=== PATIENT | female | born 1960 | race Caucasian/White ===

== ENCOUNTER 2016-11-04 10:25 | Day surgery (SDC) | payer OTHER ==
[2016-11-02 11:25] VITALS: BMI 22.6
[~2016-11-04 10:25] MED LIST: LACTATED RINGERS 1,000 ML IV SCH; LIDOCAINE 1% 20 ML VIAL (10MG/ML) FOR IV START INTRADERMA PRN
[2016-11-04 10:47] VITALS: TEMP 98.1
[2016-11-04] MEDS ORDERED: LACTATED RINGERS 1,000 ML IV ONE (10:47)
[2016-11-04] MEDS ORDERED: ONDANSETRON 4 MG/2 ML VIAL IVP ONE (10:56)
[2016-11-04] MEDS ORDERED: LIDOCAINE 1% INJ 10MG/ML (20 ML MDV) ONE (11:37)
[2016-11-04] MEDS ORDERED: PROPOFOL 10 MG/ML 20 ML VIAL IV ONE (11:37)
--- NOTE | 2016-11-04 12:00 | P.PCN ---
Date of Procedure: 11/04/16 Preoperative Diagnosis: Postoperative Diagnosis: Procedure(s) Performed: Brief history: Patient is a pleasant 56-year-old white female, scheduled for an elective upper endoscopy as well as colonoscopy as a part of evaluation of abdominal pain, change in bowel habits for the last 2 years duration. Procedure performed: Esophagogastroduodenoscopy with biopsy Colonoscopy with biopsy Preoperative diagnosis: Abdominal pain Change in bowel habits Anesthesia: MAC Procedure: After informed consent was obtained from the patient was brought into the endoscopy unit and IV sedation was administered by anesthesia under continuous monitoring. Initially upper endoscopy was done. The Olympus GF 160 video endoscope was inserted inserted into the mouth and esophagus intubated without any difficulty and was gradually advanced into the stomach and duodenum and carefully examined. Biopsies were done from the duodenum to rule out celiac disease. The bulb and second part of the duodenum appeared normal. The scope was then withdrawn into the stomach adequately insufflated with air and upon careful examination the antrum had mild mottling of the mucosa and biopsies were done from this area. The body, cardia and fundus appeared normal. The scope was then withdrawn into the esophagus. small sliding-type hiatal hernia noted. The GE junction was located at 40 cm to the incisors. It appeared regular with no erythema erosions or ulcerations. Rest of the esophagus appeared normal. Patient tolerated the procedure well. At this time the patient continued to remain sedation. Initial digital rectal examination was normal. Olympus CF 160 video colonoscope was then inserted into the rectum and gradually advanced to the cecum without any difficulty. Careful examination was performed as the scope was gradually being withdrawn. The prep was excellent. 10 cm of the terminal ileum was visualized and appeared normal. The cecum, ascending colon, transverse colon, descending colon, sigmoid colon and rectum appeared normal. random biopsies were done from ascending and descending colon to rule out Jacob scope/collagenous colitis. Retroflexion was performed in the rectum and no lesions were noted. Patient tolerated the procedure well. Impression: 1. Upper endoscopy revealed mild antral gastritis and small sliding-type hiatal hernia. 2. Colonoscopy was essentially within normal limits with no evidence of colitis or colorectal neoplasia Recommendations: Findings of this examination were discussed with the patient as well as her family. She was advised to follow with the biopsy results. She can have a repeat screening colonoscopy in 10 years Implants: Indications for Procedure: Operative Findings: Description of Procedure:
[2016-11-04 12:22] VITALS: BP 115/67; PULSE 49; RESP 16
== END 2016-11-04 12:35 | disposition home or self-care (01) ==
LOC: ORWHC2ENDO 10:25
PROVIDERS: ATTEND Internal Medicine Gastroenterology
DX: R19.4 Change in bowel habit (principal); K21.0 Gastro-esophageal reflux disease with esophagitis; K29.50 Unspecified chronic gastritis without bleeding; K44.9 Diaphragmatic hernia without obstruction or gangrene; J45.909 Unspecified asthma, uncomplicated; M79.7 Fibromyalgia; Z79.82 Long term (current) use of aspirin; Z79.51 Long term (current) use of inhaled steroids; Z79.899 Other long term (current) drug therapy; Z88.1 Allergy status to other antibiotic agents; Z91.040 Latex allergy status
CPT/HCPCS: 88305; 88342; 45380; 43239; J2405; J2001; J2704

== ENCOUNTER 2017-08-01 04:04 | Observation (INO) | payer OTHER ==
--- NOTE | 2017-08-01 04:25 | ED ---
Chest Pain HPI - General Chief Complaint: Chest Pain Stated Complaint: Chest pain Time Seen by Provider: 08/01/17 04:06 Source: patient Mode of arrival: EMS Limitations: no limitations - History of Present Illness Initial Comments: This patient is a 57-year-old woman who presents to be evaluated for left-sided chest pain that radiates to her back. The patient states that it developed about 2 hours ago, and it did wake her from sleep. She states that the pain became severe and her partner recommended she be seen here. She describes pain as being constant, she states that it's sharp and burning sensation at the same time. She has not discovered anything that worsens or improves the pain. MD Complaint: chest pain Onset/Timin -: hour(s) Onset: during rest Pain Location: left chest Pain Radiation: back Severity: severe Quality: sharp, other (Burning) Consistency: constant Improves With: nothing Worsens With: nothing Treatments Prior to Arrival: none - Related Data Home Medications Medication Instructions Recorded Confirmed Ranitidine HCl [Zantac] 150 mg PO BID 02/21/14 08/01/17 Albuterol Sulfate [Ventolin Hfa] 1 - 2 puff INHALATION RT-QID PRN 11/02/1608/01 Hydroxychloroquine Sulfate 200 mg PO BID 11/02/16 08/01/17 [Plaquenil] Sulfamethox-Tmp 800-160Mg [Bactrim 1 tab PO BID 08/01/17 08/01/17 DS 800-160 mg] Allergies Allergy/AdvReac Type Severity Reaction Status Date / Time bee venom protein (honey bee) Allergy Severe Anaphylaxis Verified 08/01/17 07:29 adhesive tape AdvReac Unknown Tears skin Verified 08/01/17 07:29 latex AdvReac Itching, Verified 08/01/17 07:29 skin peels Tetracyclines AdvReac Rash/Hives Verified 08/01/17 07:29 Review of Systems ROS Statement: Those systems with pertinent positive or pertinent negative responses have been documented in the HPI. ROS Other: All systems not noted in ROS Statement are negative. Constitutional: Denies: fever, chills Respiratory: Denies: cough, dyspnea Cardiovascular: Reports: as per HPI, chest pain. Denies: palpitations, orthopnea, edema, syncope Gastrointestinal: Reports: abdominal pain (Chronic). Denies: nausea, vomiting, diarrhea, constipation Genitourinary: Denies: dysuria, hematuria Musculoskeletal: Denies: back pain Skin: Denies: rash Neurological: Denies: headache, weakness, numbness EKG Findings - EKG Results: EKG: interpreted by LUZ, sinus rhythm, normal axis, normal QRS, normal ST/T EKG shows: bradycardia (Rate approximately 53 bpm) - [place], Pacemaker, Normal: Myocardial infarction: anterior [place] (old age or indeterminate) (There may be a every wave in lead V2 consistent with possible old septal infarct) Past Medical History Past Medical History: Asthma, Fibromyalgia, GERD/Reflux, Myocardial Infarction ( [place]), Osteoarthritis (OA) Additional Past Medical History / Comment(s): LUPUS, HX OF DIVERTICULITIS, CONSTIPATION AND DIARRHEA. , RECEIVING ROOSTER COMB INJECTIONS IN KNEES, PT STATES JUST DOESNT FEEL WELL, STATES ABNORMAL LIVER TESTS. Last Myocardial Infarction Date:: unknown History of Any Multi-Drug Resistant Organisms: None Reported Past Surgical History: Back Surgery, Cholecystectomy, Hysterectomy, Joint Replacement, Orthopedic Surgery, Tonsillectomy Additional Past Surgical History / Comment(s): RIGHT TOTAL HIP , LOWER BACK FUSION, CERVICAL SURGERY WITH HARDWARE, WIRED RIGHT SHOULDER, NERVE RIGHT ELBOW. Past Anesthesia/Blood Transfusion Reactions: Postoperative Nausea & Vomiting ( PONV) Past Psychological History: No Psychological Hx Reported Smoking Status: Current every day smoker Past Alcohol Use History: None Reported Past Drug Use History: Marijuana - Past Family History Mother Family Medical History: Cancer Additional Family Medical History / Comment(s): BREAST CANCER WITH METS. Father Family Medical History: Coronary Artery Disease (CAD) Additional Family Medical History / Comment(s): FATHER AT THE AGE OF 75YRS from broken heart. He has history of CVA. Daughter(s) Additional Family Medical History / Comment(s): Patient has 2 adult children with no major medical problems. General Exam Limitations: no limitations General appearance: alert, in no apparent distress Head exam: Present: atraumatic, normocephalic Eye exam: Present: normal appearance. Absent: scleral icterus, conjunctival injection ENT exam: Present: normal oropharynx Respiratory exam: Present: normal lung sounds bilaterally. Absent: respiratory distress, wheezes, rales, rhonchi, stridor Cardiovascular Exam: Present: regular rate, normal rhythm, normal heart sounds. Absent: systolic murmur, diastolic murmur, rubs, gallop GI/Abdominal exam: Present: soft. Absent: distended, tenderness, guarding, rebound, mass, pulsatile mass, hernia Extremities exam: Present: normal inspection, normal capillary refill. Absent: pedal edema, calf tenderness Back exam: Present: normal inspection. Absent: CVA tenderness (R), CVA tenderness (L) Neurological exam: Present: alert Skin exam: Present: warm, dry, intact, normal color. Absent: rash Course Vital Signs 08/01/17 08/01/17 08/01/17 04:06 06:45 07:26 Temperature 98.4 F Pulse Rate 66 60 57 L Pulse Rate [ Right Pulse Oximetery] Pulse Rate [ Sitting Apical] Respiratory 20 16 17 Rate Blood Pressure 157/72 113/66 135/59 O2 Sat by Pulse 98 97 Oximetry 08/01/17 08/01/17 08/01/17 08:20 10:08 10:44 Temperature Pulse Rate 63 59 L 58 L Pulse Rate [ Right Pulse Oximetery] Pulse Rate [ Sitting Apical] Respiratory 18 17 18 Rate Blood Pressure 128/79 125/66 125/58 O2 Sat by Pulse 97 100 100 Oximetry 08/01/17 08/01/17 08/01/17 13:18 13:28 15:00 Temperature Pulse Rate 55 L 60 Pulse Rate [ Right Pulse Oximetery] Pulse Rate [ 70 Sitting Apical] Respiratory 19 18 17 Rate Blood Pressure 128/59 120/58 O2 Sat by Pulse 96 96 Oximetry 08/01/17 08/01/17 15:47 16:00 Temperature 98.6 F Pulse Rate 60 Pulse Rate [ 55 L Right Pulse Oximetery] Pulse Rate [ 70 Sitting Apical] Respiratory 1 L 18 Rate Blood Pressure 122/60 O2 Sat by Pulse 98 Oximetry Disposition Clinical Impression: Chest pain Disposition: ADMITTED IP TO THIS [facility] Condition: Fair
[2017-08-01] MEDS ORDERED: ASPIRIN 81 MG PO STA (04:35)
[2017-08-01] MEDS ORDERED: MORPHINE SULFATE 4 MG/ML SYRINGE IV STA (04:35)
[2017-08-01] MEDS ORDERED: diphenhydrAMINE 50 MG/ML 1 ML VIAL IVP STA (05:01)
--- NOTE | 2017-08-01 05:13 | XR ---
EXAM: XR Chest, 1 View CLINICAL HISTORY: ITS.REASON XR Reason: chest pain TECHNIQUE: Frontal view of the chest. COMPARISON: None. FINDINGS: Lungs: Unremarkable. The lungs are clear. Pleural space: Unremarkable. No pneumothorax. Heart: Unremarkable. No cardiomegaly. Mediastinum: Unremarkable. Bones/joints: Mild degenerative changes of the left shoulder joint. IMPRESSION: No acute findings.
[2017-08-01 05:39] LABS: Basophils # (A) 0.1 k/uL (0-0.2); Basophils % (A) 0 %; Eosinophils # (A) 0.3 k/uL (0-0.7); Eosinophils % (A) 2 %; Lymphocytes # (A) 3.1 k/uL (1.0-4.8); Lymphocytes % (A) 19 %; MCH 30.8 pg (25.0-35.0); MCHC 34.9 g/dL (31.0-37.0); MCV 88.2 fL (80.0-100.0); Monocytes % (A) 6 %; Neutrophils # (A) 11.4 k/uL (1.3-7.7); Neutrophils % (A) 71 %; Platelet Count 321 k/uL (150-450); RBC 4.53 m/uL (3.80-5.40); RDW 12.3 % (11.5-15.5); WBC 16.1 k/uL (3.8-10.6)
[2017-08-01 05:49] LABS: ALT 25 U/L (9-52); AST 15 U/L (14-36); Albumin 3.9 g/dL (3.5-5.0); Alkaline Phosphatase 105 U/L (38-126); Amylase 106 U/L (30-110); Anion Gap 10 mmol/L; Blood Urea Nitrogen 21 mg/dL (7-17); Calcium 9.9 mg/dL (8.4-10.2); Carbon Dioxide 25 mmol/L (22-30); Chloride 104 mmol/L (98-107); Glucose 86 mg/dL (74-99); Lipase 346 U/L (23-300); Potassium 4.1 mmol/L (3.5-5.1); Sodium 139 mmol/L (137-145); Total Bilirubin 0.2 mg/dL (0.2-1.3); Total Protein 6.8 g/dL (6.3-8.2)
[2017-08-01] MEDS ORDERED: RX INFO: IV CONTRAST WAS GIVEN 1 EACH MISC MISCELLANE PRN (06:42)
[2017-08-01] MEDS ORDERED: NITROGLYCERIN SL TABS 0.4 MG TAB SUBLINGUAL PRN (07:33)
--- NOTE | 2017-08-01 08:16 | CT ---
INDICATION: Chest pain, shortness of breath TECHNIQUE: CT acquisition is performed through the chest per institutional CT pulmonary angiogram protocol following the administration of 100 mL Omnipaque 350 IV contrast. Sagittal and coronal reformatted images and MIP images are provided. DOSE INFORMATION: DLP 459 mGy-cm. One or more of the following dose reduction techniques were used: automated exposure control, adjustment of the mA and/or kV according to patient size, use of iterative reconstruction technique. COMPARISON: CXR 08/01/17. FINDINGS: There is no evidence of acute pulmonary embolism. Main pulmonary artery is normal in caliber. There is no evidence of thoracic aortic aneurysm or dissection. The heart is normal in size and there is no pericardial effusion. There are calcifications in the left ventricle along the endocardial subjacent to the mitral valve. There is no adenopathy by size criteria. There is no airspace consolidation, pleural effusion, or pneumothorax. There is mild scarring in the right middle lobe. The visualized upper abdomen is unremarkable. There are no acute osseous findings. IMPRESSION: 1. No evidence of acute pulmonary embolism. 2. Calcifications along the endocardial margin of the left ventricle subjacent to the mitral valve, possibly calcifications of the papillary muscle, chordae tendineae, or trabeculated portion of the left ventricle. Correlate for any history of previous myocardial infarctions. Recommend comparison with priors, if available, to assess stability. Consider cardiology consultation and echocardiography as clinically indicated.
[2017-08-01] MEDS ORDERED: ONDANSETRON 4 MG/2 ML VIAL IVP STA (09:37)
[2017-08-01] MEDS ORDERED: ALBUTEROL NEBULIZED 2.5 MG/3 ML INHALATION PRN (10:11)
[2017-08-01 10:53] LABS: Creatine Kinase 40 U/L (30-135)
[2017-08-01 11:06] LABS: Creatine Kinase MB 0.4 ng/mL (0.0-2.4); Troponin I <0.012 ng/mL (0.000-0.034)
[2017-08-01] MEDS ORDERED: SODIUM CHLORIDE 0.9% 500 ML IV ONE (11:15)
[2017-08-01] MEDS ORDERED: SODIUM CHLORIDE 0.9% 1,000 ML IV SCH (11:30)
--- NOTE | 2017-08-01 15:03 | P.HPIM ---
History of Present Illness H&P Date: 08/01/17 Chief Complaint: Chest pain This is a 57-year-old female patient of Dr. Granado with past medical history of mild intermittent asthma, fibromyalgia, gastroesophageal reflux disease, osteoarthritis, lupus, history of diverticulitis. Patient developed left-sided chest pain under her breast that radiated to her back that woke her from sleep. Patient gives history that she had the flu about 3 weeks ago but that has resolved. She saw her doctor last week as she was not feeling well and had increased palpitations. She is scheduled for a stress test August 15. Patient states she has been weak and tired and has shortness of breath with activity. 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 She remembers about the time it happened but did not seek treatment. At that time, she states she was under a great deal of stress. Patient does have history of pancreatitis and had one occult beverage last night and noted to have elevated lipase. She states she rarely drinks alcohol. Her last bowel movement was yesterday and she had for explosive diarrhea stools. She was placed on Bactrim by her physician which she states was for a yeast infection in the female organs. She denies having any dysuria. She also had fever and chills 2 weeks ago but none now. Patient presented by ambulance to [facility] emergency center for evaluation. EKG was a normal sinus rhythm with no acute ST changes. White count was 16.1, electrolytes within normal limits, hemoglobin 14. Troponin was 0.012, liver enzymes within normal limits, amylase 106 and lipase 346. Chest x- ray showed no acute findings. CTA of the chest was negative for pulmonary embolism. Calcifications along the endocardial margin of the left ventricle adjacent to the mitral valve possible calcification of the papillary muscle, chordae tendineae or trabeculated portion of the left ventricle. Correlate for history of previous myocardial infarctions. Patient was given aspirin, morphine and Zofran and placed on the observation unit, serial cardiac enzymes and cardiology consult requested. Patient is seen in the emergency center she is waiting for a hospital room. Review of Systems All systems: negative Constitutional: Reports fatigue, Reports weakness, Denies anorexia, Denies chills, Denies fever, Denies lethargy, Denies malaise, Denies poor appetite, Denies weight loss Eyes: denies blurred vision, denies pain Ears, nose, mouth and throat: Denies headache, Denies hoarseness, Denies mouth pain, Denies sore throat, Denies vertigo Cardiovascular: Reports chest pain, Reports decreased exercise tolerance, Reports dyspnea on exertion, Reports palpitations, Reports rapid heart beat, Denies edema, Denies leg edema, Denies lightheadedness, Denies shortness of breath, Denies syncope Respiratory: Denies cough, Denies cough with sputum, Denies dyspnea, Denies excessive sputum, Denies hemoptysis, Denies home oxygen, Denies wheezing Gastrointestinal: Reports diarrhea, Denies abdominal pain, Denies nausea, Denies vomiting Genitourinary: Denies dysuria, Denies hematuria Musculoskeletal: Denies frequent falls, Denies gait dysfunction, Denies myalgias Integumentary: Denies pruritus, Denies rash, Denies wounds Neurological: Denies numbness, Denies weakness Psychiatric: Denies anxiety, Denies depression Endocrine: Denies fatigue, Denies weight change Past Medical History Past Medical History: Asthma, Fibromyalgia, GERD/Reflux, Myocardial Infarction ( [place]), Osteoarthritis (OA) Additional Past Medical History / Comment(s): LUPUS, HX OF DIVERTICULITIS, CONSTIPATION AND DIARRHEA. , RECEIVING ROOSTER COMB INJECTIONS IN KNEES, PT STATES JUST DOESNT FEEL WELL, STATES ABNORMAL LIVER TESTS. Last Myocardial Infarction Date:: unknown History of Any Multi-Drug Resistant Organisms: None Reported Past Surgical History: Back Surgery, Cholecystectomy, Hysterectomy, Joint Replacement, Orthopedic Surgery, Tonsillectomy Additional Past Surgical History / Comment(s): RIGHT TOTAL HIP , LOWER BACK FUSION, CERVICAL SURGERY WITH HARDWARE, WIRED RIGHT SHOULDER, NERVE RIGHT ELBOW. Past Anesthesia/Blood Transfusion Reactions: Postoperative Nausea & Vomiting ( PONV) Past Psychological History: No Psychological Hx Reported Smoking Status: Former smoker Past Alcohol Use History: None Reported Additional Past Alcohol Use History / Comment(s): Patient quit smoking in January 2017. Past Drug Use History: Marijuana - Past Family History Mother Family Medical History: Cancer Additional Family Medical History / Comment(s): Mother from thyroid cancer with metastatic disease. Father Family Medical History: Coronary Artery Disease (CAD) Additional Family Medical History / Comment(s): FATHER AT THE AGE OF 75YRS from broken heart. He has history of CVA. Daughter(s) Additional Family Medical History / Comment(s): Patient has 2 adult children with no major medical problems. Medications and Allergies Home Medications Medication Instructions Recorded Confirmed Type Ranitidine HCl [Zantac] 150 mg PO BID 02/21/14 08/01/17 History Albuterol Sulfate [Ventolin Hfa] 1 - 2 puff INHALATION RT-QID PRN 11/02/1608/01 History Hydroxychloroquine Sulfate 200 mg PO BID 11/02/16 08/01/17 History [Plaquenil] Sulfamethox-Tmp 800-160Mg [Bactrim 1 tab PO BID 08/01/17 08/01/17 History DS 800-160 mg] Allergies Allergy/AdvReac Type Severity Reaction Status Date / Time bee venom protein (honey bee) Allergy Severe Anaphylaxis Verified 08/01/17 07:29 adhesive tape AdvReac Unknown Tears skin Verified 08/01/17 07:29 latex AdvReac Itching, Verified 08/01/17 07:29 skin peels Tetracyclines AdvReac Rash/Hives Verified 08/01/17 07:29 Physical Exam Vitals: Vital Signs Temp Pulse Resp BP Pulse Ox 08/01/17 08:20 63 18 128/79 97 08/01/17 07:26 57 L 17 135/59 97 08/01/17 06:45 60 16 113/66 98 08/01/17 04:06 98.4 F 66 20 157/72 Intake and Output 07/31/17 08/01/17 08/01/17 22:59 06:59 14:59 Other: Weight 68.946 kg Gen: This is a 57-year-old female patient. Patient is sitting up in the ER stretcher and appears to be in no acute distress. She is able to speak in full sentences. HEENT: Head is atraumatic, normocephalic. Pupils equal, round. Sclerae is anicteric. NECK: Supple. No JVD. No lymphadenopathy. No thyromegaly. LUNGS: Clear to auscultation. No wheezes or rhonchi. No intercostal retractions. HEART: Regular rate and rhythm. No murmur. ABDOMEN: Soft. Bowel sounds are present. No masses. No tenderness. EXTREMITIES: No pedal edema. No calf tenderness. NEUROLOGICAL: Patient is awake, alert and oriented x3. Cranial nerves 2 through 12 are grossly intact. Results CBC & Chem 7: 08/01/17 04:08 08/01/17 04:08 Labs: Abnormal Lab Results - Last 24 Hours (Table) 08/01/17 08/01/17 08/01/17 Range/Units 04:08 04:08 04:08 WBC 16.1 H (3.8-10.6) k/uL Neutrophils # 11.4 H (1.3-7.7) k/uL D-Dimer 1.03 H (<0.60) mg/L FEU BUN 21 H (7-17) mg/dL Lipase 346 H (23-300) U/L Thrombosis Risk Factor Assmnt - DVT/VTE Prophylaxis DVT/VTE Prophylaxis: Mechanical Prophylaxis ordered Assessment and Plan Plan: 1. Chest pain with palpitations and shortness of breath with activity, generalized weakness and fatigue. Patient was scheduled for stress test on August 15. Patient will be placed in the observation unit repeat cardiac enzymes , cardiology consult, aspirin, nitroglycerin sublingual as needed. 2. Mild intermittent asthma, stable without exacerbation. Continue albuterol inhaler as needed. 3. Lupus. Continue hydroxychloroquine. 4. Fibromyalgia, stable. 5. Diarrhea of unclear etiology. Possible gastroenteritis. Monitor for any ongoing symptoms 6. Recent treatment with Bactrim for possible urinary tract infection. Source of infection is unclear as patient denies having dysuria at the time. 7. GI prophylaxis. Pepcid. 8. DVT prophylaxis. MARTINEZ coffman and SCDs. Patient placed on the observation unit. Discharge plan: Return home Impression and plan of care have been directed as dictated by the signing physician. Aura Del Valle nurse practitioner acting as scribe for signing physician.
[2017-08-01 17:36] LABS: Creatine Kinase 37 U/L (30-135)
[2017-08-01 17:46] LABS: Creatine Kinase MB 0.3 ng/mL (0.0-2.4); Troponin I <0.012 ng/mL (0.000-0.034)
[2017-08-01] MEDS: ACETAMINOPHEN TAB 325 MG TAB PO PRN (18:05)
[2017-08-01] MEDS: ONDANSETRON 4 MG/2 ML VIAL IVP PRN (18:05)
[2017-08-01] MEDS ORDERED: TEMAZEPAM 15 MG CAP PO SCH (21:00)
[2017-08-01] MEDS ORDERED: SULFAMETHOX-TMP 800-160MG 1 EACH TAB PO SCH (21:00)
[2017-08-01] MEDS: FAMOTIDINE 20 MG TAB PO SCH (22:15)
[2017-08-01] MEDS: HYDROXYCHLOROQUINE SULFATE 200 MG TAB PO SCH (22:15)
[2017-08-02 08:02] LABS: Basophils % (A) 0 %; Eosinophils # (A) 0.3 k/uL (0-0.7); Eosinophils % (A) 2 %; HCT 44.9 % (34.0-46.0); HGB 14.4 gm/dL (11.4-16.0); Lymphocytes # (A) 3.1 k/uL (1.0-4.8); Lymphocytes % (A) 23 %; MCH 29.3 pg (25.0-35.0); MCHC 32.2 g/dL (31.0-37.0); Mean Platelet Volume 7.1; Monocytes # (A) 0.9 k/uL (0-1.0); Monocytes % (A) 7 %; Neutrophils # (A) 9.2 k/uL (1.3-7.7); Neutrophils % (A) 67 %; Platelet Count 325 k/uL (150-450); RBC 4.93 m/uL (3.80-5.40); RDW 12.5 % (11.5-15.5); WBC 13.8 k/uL (3.8-10.6)
[2017-08-02 08:23] LABS: Albumin 4.2 g/dL (3.5-5.0); Calcium 9.6 mg/dL (8.4-10.2); Potassium 4.4 mmol/L (3.5-5.1); Total Bilirubin 0.4 mg/dL (0.2-1.3); Total Protein 7.3 g/dL (6.3-8.2)
[2017-08-02] MEDS: ONDANSETRON 4 MG/2 ML VIAL IVP PRN ×2 (08:27→18:52)
[2017-08-02] MEDS: ACETAMINOPHEN TAB 325 MG TAB PO PRN (08:28)
--- NOTE | 2017-08-02 10:15 | P.CRDCN ---
History of Present Illness Consult date: 08/02/17 Consult reason: chest pain History of present illness: Mrs. Benton is a pleasant 57-year-old female past medical history significant for asthma, fibromyalgia, gastroesophageal reflux disease, gastritis and lupus. She is also former smoker. She states she quit smoking tobacco January 2017 but continues to use medical marijuana daily. She denies personal history of coronary artery disease and has never seen a dairy bar manager for any reason. We've been asked to see her in consultation for complaint of chest pain. She states around 299 morning she woke up from sleep with an acute onset of sob and chest pain. The pain was in the midsternal/epigastric region and was stabbing/squeezing. It radiated through to her back and left shoulder. She got herself up into her chair and tried called for her but couldn't because the pain was so excrutiating. Ultimately she called EMS. The pain persisted until EMS arrived and gave her SL nitroglycerin which took the pain away. She also complains of over the last few weeks being extremely nauseous, frequent bouts of diarrhea and abdominal pain. She states she has had pancreatitis in the past and her gallbladder has been removed. She also has a history of IBS for which she has seen Dr. Guevara as an outpatient. She takes Zantac as needed. No further episodes of chest pain since admission but she does complain of ongoing nausea and mild tenderness to the left upper quadrant of the abdomen. EKG on arrival reveals sinus mechanism with poor R-wave progression. There is no old for comparison. Per the patient she states she is aware that she had a silent heart attack around 2010. Chest x-ray is negative for an acute cardiopulmonary process. CT angios negative for pulmonary embolism but does show some cardiac calcifications. Laboratory data reviewed, WBC on admission 16.1, repeat this morning 13.8, hemoglobin 14.9, platelets 325, d-dimer 1.03, potassium 4.4, magnesium 2.0, creatinine 0.93, cardiac enzymes negative 3, LDL 124, HDL 73, lipase on admission 340 6 repeat this morning 584. She takes no cardiac medications. Denies history of hypertension, dyslipidemia or diabetes mellitus. Significant family history for premature cardiac disease. Review of Systems At this time my exam: CONSTITUTIONAL: Denies fever. Denies chills. EYES: Denies blurred vision. Denies vision changes. Denies eye pain. EARS, NOSE, MOUTH & THROAT: Denies headache. Denies sore throat. Denies ear pain. CARDIOVASCULAR: Denies chest pain. Denies shortness of breath. Denies orthopnea. Denies PND. Denies palpitations. RESPIRATORY: Denies cough. GASTROINTESTINAL: Complains of abdominal pain with diarrhea and persistent nausea. Denies constipation. Denies vomiting. MUSCULOSKELETAL: Denies myalgias. INTEGUMENTARY: Denies pruitis. Denies rash. NEUROLOGIC: Denies numbness. Denies tingling. Denies weakness. PSYCHIATRIC: Denies anxiety. Denies depression. ENDOCRINE: Denies fatigue. Denies weight change. Denies polydipsia. Denies polyurina. GENITOURINARY: Denies burning, hematuria or urgency with micturation. HEMATOLOGIC: Denies history of anemia. Denies bleeding. Past Medical History Past Medical History: Asthma, Fibromyalgia, GERD/Reflux, Myocardial Infarction ( [place]), Osteoarthritis (OA) Additional Past Medical History / Comment(s): LUPUS, HX OF DIVERTICULITIS, CONSTIPATION AND DIARRHEA. , RECEIVING ROOSTER COMB INJECTIONS IN KNEES, PT STATES JUST DOESNT FEEL WELL, STATES ABNORMAL LIVER TESTS. Last Myocardial Infarction Date:: unknown History of Any Multi-Drug Resistant Organisms: None Reported Past Surgical History: Back Surgery, Cholecystectomy, Hysterectomy, Joint Replacement, Orthopedic Surgery, Tonsillectomy Additional Past Surgical History / Comment(s): RIGHT TOTAL HIP , LOWER BACK FUSION, CERVICAL SURGERY WITH HARDWARE, WIRED RIGHT SHOULDER, NERVE RIGHT ELBOW. Past Anesthesia/Blood Transfusion Reactions: Postoperative Nausea & Vomiting ( PONV) Past Psychological History: No Psychological Hx Reported Smoking Status: Former smoker Past Alcohol Use History: None Reported Additional Past Alcohol Use History / Comment(s): Patient quit smoking in January 2017. Past Drug Use History: Marijuana - Past Family History Mother Family Medical History: Cancer Additional Family Medical History / Comment(s): Mother from thyroid cancer with metastatic disease. Father Family Medical History: Coronary Artery Disease (CAD) Additional Family Medical History / Comment(s): FATHER AT THE AGE OF 75YRS from broken heart. He has history of CVA. Daughter(s) Additional Family Medical History / Comment(s): Patient has 2 adult children with no major medical problems. Medications and Allergies Home Medications Medication Instructions Recorded Confirmed Type Ranitidine HCl [Zantac] 150 mg PO BID 02/21/14 08/01/17 History Albuterol Sulfate [Ventolin Hfa] 1 - 2 puff INHALATION RT-QID PRN 11/02/1608/01 History Hydroxychloroquine Sulfate 200 mg PO BID 11/02/16 08/01/17 History [Plaquenil] Sulfamethox-Tmp 800-160Mg [Bactrim 1 tab PO BID 08/01/17 08/01/17 History DS 800-160 mg] Allergies Allergy/AdvReac Type Severity Reaction Status Date / Time bee venom protein (honey bee) Allergy Severe Anaphylaxis Verified 08/01/17 07:29 adhesive tape AdvReac Unknown Tears skin Verified 08/01/17 07:29 latex AdvReac Itching, Verified 08/01/17 07:29 skin peels Tetracyclines AdvReac Rash/Hives Verified 08/01/17 07:29 Physical Exam Vitals: Vital Signs Temp Pulse Pulse Pulse Resp BP BP 08/02/17 08:00 98.2 F 68 18 123/71 08/02/17 04:00 97.9 F 58 L 16 114/57 08/02/17 00:00 16 08/01/17 23:55 98.1 F 62 16 103/55 08/01/17 20:00 16 08/01/17 19:07 98.3 F 72 16 118/63 08/01/17 16:13 97.2 F L 55 L 18 115/59 08/01/17 16:00 55 L 70 18 08/01/17 15:47 98.6 F 60 1 L 122/60 08/01/17 15:00 60 17 120/58 08/01/17 13:28 55 L 18 128/59 08/01/17 13:18 70 19 08/01/17 10:44 58 L 18 125/58 08/01/17 10:08 59 L 17 125/66 Pulse Ox 08/02/17 08:00 98 08/02/17 04:00 95 08/02/17 00:00 08/01/17 23:55 94 L 08/01/17 20:00 08/01/17 19:07 98 08/01/17 16:13 94 L 08/01/17 16:00 08/01/17 15:47 98 03/06/18 15:00 96 08/01/17 13:28 96 08/01/17 13:18 08/01/17 10:44 100 08/01/17 10:08 100 Intake and Output 08/01/17 08/02/17 08/02/17 22:59 06:59 14:59 Intake Total 240 Balance 240 Intake: Oral 240 Other: Voiding Method Toilet Toilet # Voids 1 Weight 64 kg Blood pressure 123/71 heart rate 68 afebrile maintaining oxygen saturations on room air GENERAL: This is a 57-year-old female in no apparent distress at the time of my examination. HEENT: Head is atraumatic, normocephalic. Pupils are equal, round. Sclerae anicteric. Conjunctivae are clear. Mucous membranes of the mouth are moist. Neck is supple. There is no jugular venous distention. No carotid bruit is heard. LUNGS: Clear to auscultation no wheezes, rales or rhonchi. No chest wall tenderness is noted on palpation or with deep breathing. Coarse lung sounds throughout. HEART: Regular rate and rhythm without murmurs, rubs or gallops. S1 and S2 heard. ABDOMEN: Soft, left upper quadrant mildly tender. Bowel sounds are heard. No organomegaly noted. EXTREMITIES: No evidence of peripheral edema and no calf tenderness noted. VASCULAR: Radial and dorsalis pedis pulses palpated, no evidence of clubbing. NEUROLOGIC: Patient is awake, alert and oriented x3. Results 08/02/17 06:52 08/02/17 06:52 Cardiac Enzymes 08/01/17 08/01/17 08/02/17 Range/Units 10:03 16:50 06:52 AST 16 (14-36) U/L CK-MB (CK-2) 0.4 0.3 (0.0-2.4) ng/mL Troponin I <0.012 <0.012 (0.000-0.034) ng/mL Lipids 08/02/17 Range/Units 06:52 Triglycerides 88 (<150) mg/dL Cholesterol 215 H (<200) mg/dL HDL Cholesterol 73 H (40-60) mg/dL CBC 08/02/17 Range/Units 06:52 WBC 13.8 H (3.8-10.6) k/uL RBC 4.93 (3.80-5.40) m/uL Hgb 14.4 (11.4-16.0) gm/dL Hct 44.9 (34.0-46.0) % Plt Count 325 (150-450) k/uL Comprehensive Metabolic Panel 08/02/17 Range/Units 06:52 Sodium 141 (137-145) mmol/L Potassium 4.4 (3.5-5.1) mmol/L Chloride 102 (98-107) mmol/L Carbon Dioxide 27 (22-30) mmol/L BUN 18 H (7-17) mg/dL Creatinine 0.93 (0.52-1.04) mg/dL Glucose 83 (74-99) mg/dL Calcium 9.6 (8.4-10.2) mg/dL AST 16 (14-36) U/L ALT 30 (9-52) U/L Alkaline Phosphatase 100 (38-126) U/L Total Protein 7.3 (6.3-8.2) g/dL Albumin 4.2 (3.5-5.0) g/dL Current Medications Generic Name Dose Route Start Last Admin Trade Name Freq PRN Reason Stop Dose Admin Acetaminophen 650 mg 08/01/17 17:47 08/02/17 08:28 Tylenol Tab PO 650 mg Q6HR PRN Administration Fever and/ or Pain Albuterol Sulfate 2.5 mg 08/01/17 10:11 Ventolin Nebulized INHALATION RT-QID PRN Shortness Of Breath Aspirin 325 mg 08/02/17 09:00 Aspirin PO DAILY BRITTANEY Famotidine 20 mg 08/01/17 21:00 08/01/17 22:15 Pepcid PO 20 mg BID BRITTANEY Administration Hydroxychloroquine Sulfate 200 mg 08/01/17 21:00 08/01/17 22:15 Plaquenil PO 200 mg BID BRITTANEY Administration Sodium Chloride 1,000 mls @ 100 mls/hr 08/01/17 11:30 08/01/17 13:10 Saline 0.9% IV 100 mls/hr .Q10H BRITTANEY Administration Miscellaneous Information 1 each 08/01/17 06:42 08/01/17 07:14 Rx Info: Iv Contrast Was Given MISCELLANE 08/03/17 06:42 1 each DAILY PRN Administration Per Protocol Nitroglycerin 0.4 mg 08/01/17 07:33 Nitrostat SUBLINGUAL Q5M PRN Chest Pain Ondansetron HCl 4 mg 08/01/17 17:47 08/02/17 08:27 Zofran IVP 4 mg Q6HR PRN Administration Nausea And Vomiting Intake and Output 08/01/17 08/02/17 08/02/17 22:59 06:59 14:59 Intake Total 240 Balance 240 Intake: Oral 240 Other: Voiding Method Toilet Toilet # Voids 1 Weight 64 kg 08/02/17 06:52 08/02/17 06:52 Assessment and Plan Assessment: ASSESSMENT 1. Chest pain, atypical. No EKG evidence of acute ischemia, cardiac enzymes negative. An acute coronary event has been ruled out. 2. Acute pancreatitis, lipase 584 3. Leukocytosis 4. Dyslipidemia 5. Urinary tract infection, currently on bactrim per pcp 6. Chronic tobacco and marijuana abuse 7. Diarrhea PLAN Obtain 2D echocardiogram and doppler study to assess cardiac structure and function. Continue with medical management of abdominal concerns, possible GI consultation. She has a stress test scheduled for next week and we discussed that she will keep that appointment. No further in-patient cardiac workup. Plan discussed with the patient and she is agreeable. Thank you kindly for this consultation. Nurse Practitioner note has been reviewed, I agree with a documented findings and plan of care. Patient was seen and examined.
[2017-08-02] MEDS: HYDROXYCHLOROQUINE SULFATE 200 MG TAB PO SCH ×2 (12:01→20:14)
[2017-08-02] MEDS: ASPIRIN 325 MG TAB PO SCH (12:01)
[2017-08-02] MEDS: FAMOTIDINE 20 MG TAB PO SCH (12:02)
[2017-08-02] MEDS ORDERED: SODIUM CHLORIDE 0.9% 1,000 ML IV ONE (13:02)
[2017-08-02] MEDS: MORPHINE SULFATE 4 MG/ML SYRINGE IVP PRN ×3 (13:58→21:51)
--- NOTE | 2017-08-02 17:02 | ECHOF ---
Referral Reason:chest pain MEASUREMENTS -------- HEIGHT: 165.1 cm WEIGHT: 64.0 kg BP: 123/71 RVIDd: 2.4 cm (< 3.3) IVSd: 1.0 cm (0.6 - 1.1) LVIDd: 4.1 cm (3.9 - 5.3) LVPWd: 1.1 cm (0.6 - 1.1) IVSs: 1.1 cm LVIDs: 3.4 cm LVPWs: 1.1 cm LAESV Index (A-L): 25.42 ml/m Ao Diam: 2.7 cm (2.0 - 3.7) AV Cusp: 1.4 cm (1.5 - 2.6) LA Diam: 3.3 cm (2.7 - 3.8) MV EXCURSION: 15.293 mm (> 18.000) MV EF SLOPE: 106 mm/s (70 - 150) EPSS: 0.4 cm MV E Billy: 0.47 m/s MV DecT: 349 ms MV A Billy: 0.56 m/s MV E/A Ratio: 0.84 RAP: 5.00 mmHg RVSP: 12.14 mmHg FINDINGS -------- Sinus rhythm. This was a technically good study. LV size, wall thickness and systolic function are normal, with an EF greater than 55%. The left rubén tricular size is normal. The right ventricle is normal in size. Normal LA size by volume 22+/-6 ml/m2. The right atrial size is normal. The aortic valve is trileaflet, and appears structurally normal. No aortic stenosis or regurgitation. Mild mitral annular calcification present. Mild mitral regurgitation is present. Mild prolapse of the posterior mitral valve leaflet. Mild tricuspid regurgitation present. There is no evidence of pulmonary hypertension. The right v entricular systolic pressure, as measured by Doppler, is 12.14mmHg. There is no pulmonic regurgitation present. The aortic root size is normal. There is no pericardial effusion. CONCLUSIONS -------- 1. LV size, wall thickness and systolic function are normal, with an EF greater than 55%. 2. The left ventricular size is normal. 3. Normal LA size by volume 22+/-6 ml/m2. 4. The aortic valve is trileaflet, and appears structurally normal. No aortic stenosis or regurgitati on. 5. Mild mitral annular calcification present. 6. Mild mitral regurgitation is present. 7. Mild prolapse of the posterior mitral valve leaflet. 8. Mild tricuspid regurgitation present. 9. There is no evidence of pulmonary hypertension. 10. The right ventricular systolic pressure, as measured by Doppler, is 12.14mmHg. 11. There is no pulmonic regurgitation present. 12. The aortic root size is normal. 13. There is no pericardial effusion. WELDING OPERATOR: Tamara Boyce RDCS
--- NOTE | 2017-08-02 17:21 | P.PN ---
Subjective Progress Note Date: 08/02/17 This is a 57-year-old female patient of Dr. Granado with past medical history of mild intermittent asthma, fibromyalgia, gastroesophageal reflux disease, osteoarthritis, lupus, history of diverticulitis. Patient developed left-sided chest pain under her breast that radiated to her back that woke her from sleep. Patient gives history that she had the flu about 3 weeks ago but that has resolved. She saw her doctor last week as she was not feeling well and had increased palpitations. She is scheduled for a stress test August 15. Patient states she has been weak and tired and has shortness of breath with activity. 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 She remembers about the time it happened but did not seek treatment. At that time, she states she was under a great deal of stress. Patient does have history of pancreatitis and had one occult beverage last night and noted to have elevated lipase. She states she rarely drinks alcohol. Her last bowel movement was yesterday and she had for explosive diarrhea stools. She was placed on Bactrim by her physician which she states was for a yeast infection in the female organs. She denies having any dysuria. She also had fever and chills 2 weeks ago but none now. Patient presented by ambulance to [facility] emergency center for evaluation. EKG was a normal sinus rhythm with no acute ST changes. White count was 16.1, electrolytes within normal limits, hemoglobin 14. Troponin was 0.012, liver enzymes within normal limits, amylase 106 and lipase 346. Chest x- ray showed no acute findings. CTA of the chest was negative for pulmonary embolism. Calcifications along the endocardial margin of the left ventricle adjacent to the mitral valve possible calcification of the papillary muscle, chordae tendineae or trabeculated portion of the left ventricle. Correlate for history of previous myocardial infarctions. Patient was given aspirin, morphine and Zofran and placed on the observation unit, serial cardiac enzymes and cardiology consult requested. Patient is seen in the emergency center she is waiting for a hospital room. 08/02 patient evaluated by cardiology. Plan to get a stress test as outpatient. Lipase elevated to 584 from 346. Patient DD to small amount of meal along with a bolus and. Complain of significant nausea associated with epigastric tenderness. Triglycerides 215. Gastroenterology consult placed. Patient given 1 L of IV fluids. To continue at 1 25 mL per hour. Patient to keep nothing by mouth. Morphine 4 mg daily Objective - Vital Signs Vital signs: Vital Signs Temp 97.6 F 08/02/17 16:00 Pulse 55 L 08/02/17 16:00 Resp 18 08/02/17 16:00 BP 140/65 08/02/17 16:00 Pulse Ox 97 08/02/17 16:00 Intake & Output 08/01/17 08/02/17 08/02/17 18:59 06:59 18:59 Intake Total 240 240 Balance 240 240 Weight 64 kg Intake: Oral 240 240 Other: Voiding Method Toilet Toilet Toilet # Voids 1 3 - Exam Gen: This is a 57-year-old female patient. Patient is sitting up in the ER stretcher and appears to be in no acute distress. She is able to speak in full sentences. HEENT: Head is atraumatic, normocephalic. Pupils equal, round. Sclerae is anicteric. NECK: Supple. No JVD. No lymphadenopathy. No thyromegaly. LUNGS: Clear to auscultation. No wheezes or rhonchi. No intercostal retractions. HEART: Regular rate and rhythm. No murmur. ABDOMEN: Soft. Bowel sounds are present. No masses. Epigastric tenderness EXTREMITIES: No pedal edema. No calf tenderness. NEUROLOGICAL: Patient is awake, alert and oriented x3. Cranial nerves 2 through 12 are grossly intact. - Labs CBC & Chem 7: 08/02/17 06:52 08/02/17 06:52 Labs: Abnormal Lab Results - Last 24 Hours (Table) 08/02/17 08/02/17 Range/Units 06:52 06:52 WBC 13.8 H (3.8-10.6) k/uL Neutrophils # 9.2 H (1.3-7.7) k/uL BUN 18 H (7-17) mg/dL Cholesterol 215 H (<200) mg/dL LDL Cholesterol, Calc 124 H (0-99) mg/dL HDL Cholesterol 73 H (40-60) mg/dL Lipase 584 H (23-300) U/L Assessment and Plan Plan: 1. Atypical Chest pain unlikley to be ACS Patient was scheduled for stress test on August 15. 2. Mild intermittent asthma, stable without exacerbation. Continue albuterol inhaler as needed. 3. Lupus. Continue hydroxychloroquine. 4. Fibromyalgia, stable. 5. Diarrhea of unclear etiology. Possible gastroenteritis. Monitor for any ongoing symptoms 6. Recent treatment with Bactrim for possible urinary tract infection. Source of infection is unclear as patient denies having dysuria at the time. 7. GI prophylaxis. Pepcid. 8. DVT prophylaxis. MARTINEZ eugenee and SCDs. 9. Acute epigastric pain likely secondary to acute pancreatitis continue fluids (if the. Nothing by mouth. Pain control with morphine 4 mg every 6 hours. Gastroenterology consult Patient came to be switched to inpatient Discharge plan: Intermittent improvement in symptoms
[2017-08-02] MEDS: SODIUM CHLORIDE 0.9% 1,000 ML IV SCH (17:42)
[2017-08-02] MEDS: diphenhydrAMINE 50 MG/ML 1 ML VIAL IVP PRN (20:14)
[2017-08-02] MEDS: FAMOTIDINE 20 MG/2 ML VIAL IV SCH (20:25)
[2017-08-03] MEDS: diphenhydrAMINE 50 MG/ML 1 ML VIAL IVP PRN (01:23)
[2017-08-03] MEDS: MORPHINE SULFATE 4 MG/ML SYRINGE IVP PRN ×3 (02:21→10:17)
[2017-08-03] MEDS: ONDANSETRON 4 MG/2 ML VIAL IVP PRN (02:21)
[2017-08-03] MEDS: ACETAMINOPHEN TAB 325 MG TAB PO PRN (06:00)
[2017-08-03 07:32] LABS: Basophils % (A) 0 %; Eosinophils # (A) 0.2 k/uL (0-0.7); Eosinophils % (A) 1 %; HCT 41.4 % (34.0-46.0); Lymphocytes # (A) 2.5 k/uL (1.0-4.8); Lymphocytes % (A) 17 %; MCH 31.2 pg (25.0-35.0); MCHC 33.8 g/dL (31.0-37.0); MCV 92.2 fL (80.0-100.0); Mean Platelet Volume 6.9; Monocytes % (A) 7 %; Neutrophils # (A) 10.4 k/uL (1.3-7.7); Neutrophils % (A) 73 %; Platelet Count 275 k/uL (150-450); RBC 4.49 m/uL (3.80-5.40); RDW 12.6 % (11.5-15.5); WBC 14.3 k/uL (3.8-10.6)
[2017-08-03 07:54] LABS: ALT 31 U/L (9-52); AST 17 U/L (14-36); Albumin 3.7 g/dL (3.5-5.0); Alkaline Phosphatase 86 U/L (38-126); Anion Gap 10 mmol/L; Blood Urea Nitrogen 16 mg/dL (7-17); Calcium 9.3 mg/dL (8.4-10.2); Carbon Dioxide 23 mmol/L (22-30); Chloride 108 mmol/L (98-107); Glucose 77 mg/dL (74-99); Lipase 193 U/L (23-300); Potassium 4.7 mmol/L (3.5-5.1); Sodium 141 mmol/L (137-145); Total Bilirubin 0.5 mg/dL (0.2-1.3); Total Protein 6.6 g/dL (6.3-8.2)
[2017-08-03 09:00] VITALS: RESP 16
[2017-08-03] MEDS: ASPIRIN 325 MG TAB PO SCH (10:13)
[2017-08-03] MEDS: HYDROXYCHLOROQUINE SULFATE 200 MG TAB PO SCH (10:13)
[2017-08-03] MEDS: SODIUM CHLORIDE 0.9% 1,000 ML IV SCH ×2 (10:13→10:20)
[2017-08-03] MEDS: FAMOTIDINE 20 MG/2 ML VIAL IV SCH (10:13)
--- NOTE | 2017-08-03 11:10 | P.PN ---
Subjective Progress Note Date: 08/03/17 Principal diagnosis: Abdominal pain, elevated lipase evaluation for pancreatitis 57-year-old female with a history of IBS, cholecystectomy for biliary dyskinesia , pancreatitis, fibromyalgia, lupus, diverticulosis. Patient presented with acute chest pain 3 days ago that radiated to her right neck and upper back Consultation requested for elevation of lipase. Admission lipase 346 increased to 584 presently 193. Amylase 106. LFTs within normal limits. Patient states she has a history of pancreatitis about a year ago in the state [facility] of unclear etiology. She has no history of alcoholism. Takes occasional Zantac as needed for heartburn. No changes in the color of her urine or stool however she did having increased diarrhea for the last few days but improved over last 24 hours. Afebrile. White count 16.1 presently 14.3. Hemoglobin 14. BUN 16. Creatinine 0.8. Troponin 3 less than 0.012. Triglycerides 88. CTA chest no evidence of pulmonary embolism. Visualized upper abdomen is unremarkable Objective - Vital Signs Vital signs: Vital Signs Temp 98.4 F 08/03/17 08:00 Pulse 58 L 08/03/17 08:00 Resp 16 08/03/17 08:00 BP 111/58 08/03/17 08:00 Pulse Ox 98 08/03/17 08:00 Intake & Output 08/02/17 08/03/17 08/03/17 18:59 06:59 18:59 Intake Total 240 240 Balance 240 240 Weight 64 kg Intake: Oral 240 240 Other: Voiding Method Toilet Toilet Toilet # Voids 3 1 - Exam General appearance: The patient is alert, oriented, in no acute distress. HET: Head is normocephalic and atraumatic. Pupils are equal and reactive. Oropharynx is clear without lesions. Neck: Supple without lymphadenopathy. Trachea midline. Heart: S1 S2. Regular rate and rhythm. Lungs: No crackles or wheezes are heard. Abdomen: Soft, nontender, nondistended with bowel sounds. No peritoneal signs. No palpable organomegaly or masses. Extremities: Normal skin color and turgor. No cyanosis, rash, ulceration, clubbing, or edema. Radial and pedal pulses are 2/4 bilaterally. Neurological: No focal deficits. Strength and sensation are grossly intact. - Labs CBC & Chem 7: 08/03/17 07:06 08/03/17 07:06 Labs: Abnormal Lab Results - Last 24 Hours (Table) 08/03/17 08/03/17 Range/Units 07:06 07:06 WBC 14.3 H (3.8-10.6) k/uL Neutrophils # 10.4 H (1.3-7.7) k/uL Chloride 108 H (98-107) mmol/L
[2017-08-03 12:00] VITALS: BP 116/53; PULSE 55; TEMP 98.5
--- NOTE | 2017-08-03 12:22 | P.DS ---
Providers Date of admission: 08/01/17 07:33 Attending physician: Mikel Reyna MD Consults: 08/01/17 10:11 Consult Physician Routine Consulting Provider: Christiano Ford Consult Reason/Comments: CP Do you want consulting provider notified?: Yes 08/02/17 13:34 Consult Physician Routine Consulting Provider: Britney Guevara Consult Reason/Comments: abdominal pain, elevated lipase Do you want consulting provider notified?: Yes Primary care physician: [facility] Course: his is a 57-year-old female patient of Dr. Granado with past medical history of mild intermittent asthma, fibromyalgia, gastroesophageal reflux disease, osteoarthritis, lupus, history of diverticulitis. Patient developed left-sided chest pain under her breast that radiated to her back that woke her from sleep. Patient gives history that she had the flu about 3 weeks ago but that has resolved. She saw her doctor last week as she was not feeling well and had increased palpitations. She is scheduled for a stress test August 15. Patient states she has been weak and tired and has shortness of breath with activity. 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 She remembers about the time it happened but did not seek treatment. At that time, she states she was under a great deal of stress. Patient does have history of pancreatitis and had one occult beverage last night and noted to have elevated lipase. She states she rarely drinks alcohol. Her last bowel movement was yesterday and she had for explosive diarrhea stools. She was placed on Bactrim by her physician which she states was for a yeast infection in the female organs. She denies having any dysuria. She also had fever and chills 2 weeks ago but none now. Patient presented by ambulance to [facility] emergency center for evaluation. EKG was a normal sinus rhythm with no acute ST changes. White count was 16.1, electrolytes within normal limits, hemoglobin 14. Troponin was 0.012, liver enzymes within normal limits, amylase 106 and lipase 346. Chest x- ray showed no acute findings. CTA of the chest was negative for pulmonary embolism. Calcifications along the endocardial margin of the left ventricle adjacent to the mitral valve possible calcification of the papillary muscle, chordae tendineae or trabeculated portion of the left ventricle. Correlate for history of previous myocardial infarctions. Patient was given aspirin, morphine and Zofran and placed on the observation unit, serial cardiac enzymes and cardiology consult requested. Patient is seen in the emergency center she is waiting for a hospital room. 08/02 patient evaluated by cardiology. Plan to get a stress test as outpatient. Lipase elevated to 584 from 346. Patient DD to small amount of meal along with a bolus and. Complain of significant nausea associated with epigastric tenderness. Triglycerides 215. Gastroenterology consult placed. Patient given 1 L of IV fluids. To continue at 1 25 mL per hour. Patient to keep nothing by mouth. Morphine 4 mg daily 08/03 patient was evaluated today, lipase is trending down and is now 193. Echocardiogram was completed, ejection fraction greater than 55%, mild mitral regurgitation. Cardiology consult appreciated, patient has a stress test scheduled for next week as outpatient. Patient will be discharged on Bentyl Discharge diagnoses 1. Atypical Chest pain 2. Mild intermittent asthma 3. Lupus 4. Fibromyalgia 5. Diarrhea 6. Acute epigastric pain likely secondary to acute pancreatitis The above impression and plan of care have been discussed and directed by signing physician. Justina Gomez nurse practitioner acting as scribe for signing physician. Patient Condition at Discharge: Good Plan - Discharge Summary Discharge Rx Participant: No New Discharge Prescriptions: New Dicyclomine [Bentyl] 10 mg PO QID #120 capsule Continue Ranitidine HCl [Zantac] 150 mg PO BID Albuterol Sulfate [Ventolin HFA] 1 - 2 puff INHALATION RT-QID PRN PRN Reason: Shortness Of Breath Hydroxychloroquine Sulfate [Plaquenil] 200 mg PO BID Discontinued Sulfamethox-Tmp 800-160Mg [Bactrim DS 800-160 mg] 1 tab PO BID Discharge Medication List Ranitidine HCl [Zantac] 150 mg PO BID 02/21/14 [History] Albuterol Sulfate [Ventolin HFA] 1 - 2 puff INHALATION RT-QID PRN 11/02/16 [ History] Hydroxychloroquine Sulfate [Plaquenil] 200 mg PO BID 11/02/16 [History] Dicyclomine [Bentyl] 10 mg PO QID #120 capsule 08/03/17 [Rx] Follow up Appointment(s)/Referral(s): Britney Guevara MD [STAFF PHYSICIAN] - 08/21/17 4:30 pm Billy Granado DO [Primary Care Provider] - 1 Week Patient Instructions/Handouts: Acute Abdominal Pain (DC)
--- NOTE | 2017-08-03 12:52 | P.CONS ---
History of Present Illness - Reason for Consult Consult date: 08/03/17 Elevated lipase pancreatitis evaluation Requesting physician: Mikel Reyna - History of Present Illness 57-year-old female with a history of IBS-D, cholecystectomy for biliary dyskinesia, pancreatitis, fibromyalgia, lupus, diverticulosis. Patient presented with acute chest upper abdominal pain 3 days ago that radiated to her right neck and upper back Consultation requested for elevation of lipase. Admission lipase 346 increased to 584 presently 193. Amylase 106. LFTs within normal limits. Patient states she has a history of pancreatitis about a year ago in the [facility] of unclear etiology. She has no history of alcoholism. Takes occasional Zantac as needed for heartburn. No changes in the color of her urine or stool however she did having increased diarrhea for the last few days but improved over last 24 hours. Afebrile. White count 16.1 presently 14.3. Hemoglobin 14. BUN 16. Creatinine 0.8. Troponin 3 less than 0.012. Triglycerides 88. CTA chest no evidence of pulmonary embolism. Visualized upper abdomen is unremarkable. EGD colonoscopy October [address] Guevara for evaluation of abdominal pain and change in bowel habits no evidence of peptic ulcer disease mild antral gastritis small hiatal hernia colonoscopy within normal limits. Review of Systems Constitutional: Denies fever, chills, sweats, weight gain, or loss. HEENT: Negative for migraines, blurred vision or loss, earaches, drainage, tinnitus, oral mucosal lesions, dysphagia, or odynophagia. CARDIAC: History of LA. Negative for chest pain, arrhythmias, or palpitation. RESPIRATORY: History of asthma. Negative for shortness of breath, hemoptysis, cough, or sputum production. GI: See HPI for pertinent findings. : Negative for hematuria, urgency, frequency, polyuria, or dysuria. GYNc: Denies possibility of . Negative vaginal discharge. MUSCULOSKELETAL: History of fibromyalgia. Negative for muscle aches, swelling, arthritis, and arthralgias. NEUROLOGIC: Negative for stroke or TIA. ENDOCRINE: History of lupus. Negative for thyroid problems. SKIN: Negative for rash or itching. PSYCHIATRIC: Negative history for depression and anxiety Past Medical History Past Medical History: Asthma, Fibromyalgia, GERD/Reflux, Myocardial Infarction ( LA), Osteoarthritis (OA) Additional Past Medical History / Comment(s): LUPUS, HX OF DIVERTICULITIS, CONSTIPATION AND DIARRHEA. , RECEIVING ROOSTER COMB INJECTIONS IN KNEES, PT STATES JUST DOESNT FEEL WELL, STATES ABNORMAL LIVER TESTS. Last Myocardial Infarction Date:: unknown History of Any Multi-Drug Resistant Organisms: None Reported Past Surgical History: Back Surgery, Cholecystectomy, Hysterectomy, Joint Replacement, Orthopedic Surgery, Tonsillectomy Additional Past Surgical History / Comment(s): RIGHT TOTAL HIP , LOWER BACK FUSION, CERVICAL SURGERY WITH HARDWARE, WIRED RIGHT SHOULDER, NERVE RIGHT ELBOW. Past Anesthesia/Blood Transfusion Reactions: Postoperative Nausea & Vomiting ( PONV) Past Psychological History: No Psychological Hx Reported Smoking Status: Current every day smoker Past Alcohol Use History: None Reported Past Drug Use History: Marijuana - Past Family History Mother Family Medical History: Cancer Additional Family Medical History / Comment(s): BREAST CANCER WITH METS. Father Family Medical History: Coronary Artery Disease (CAD) Additional Family Medical History / Comment(s): FATHER AT THE AGE OF 75YRS from broken heart. He has history of CVA. Daughter(s) Additional Family Medical History / Comment(s): Patient has 2 adult children with no major medical problems. Medications and Allergies Home Medications Medication Instructions Recorded Confirmed Type Ranitidine HCl [Zantac] 150 mg PO BID 02/21/14 08/01/17 History Albuterol Sulfate [Ventolin HFA] 1 - 2 puff INHALATION RT-QID PRN 11/02/1608/01 History Hydroxychloroquine Sulfate 200 mg PO BID 11/02/16 08/01/17 History [Plaquenil] Dicyclomine [Bentyl] 10 mg PO QID #120 capsule 08/03/17 Rx Allergies Allergy/AdvReac Type Severity Reaction Status Date / Time bee venom protein (honey bee) Allergy Severe Anaphylaxis Verified 08/01/17 07:29 adhesive tape AdvReac Unknown Tears skin Verified 08/01/17 07:29 latex AdvReac Itching, Verified 08/01/17 07:29 skin peels Tetracyclines AdvReac Rash/Hives Verified 08/01/17 07:29 Physical Exam Vitals: Vital Signs Temp Pulse Resp BP Pulse Ox 08/03/17 11:59 98.5 F 55 L 16 116/53 95 08/03/17 11:38 16 08/03/17 08:00 98.4 F 58 L 16 111/58 98 08/03/17 04:00 18 08/03/17 03:07 97.7 F 56 L 18 121/60 96 08/03/17 00:00 18 08/02/17 23:48 97.8 F 49 L 18 130/62 98 08/02/17 20:01 97.6 F 53 L 18 145/67 95 08/02/17 20:00 18 08/02/17 16:00 97.6 F 55 L 18 140/65 97 Intake and Output 08/02/17 08/03/17 08/03/17 22:59 06:59 14:59 Intake Total 240 Balance 240 Intake: Oral 240 Other: Voiding Method Toilet Toilet Toilet # Voids 3 1 1 Weight 64 kg General appearance: The patient is alert, oriented, in no acute distress. HET: Head is normocephalic and atraumatic. Pupils are equal and reactive. Oropharynx is clear without lesions. Neck: Supple without lymphadenopathy. Trachea midline. Heart: S1 S2. Regular rate and rhythm. Lungs: No crackles or wheezes are heard. Abdomen: Soft, nontender, nondistended with bowel sounds. No peritoneal signs. No palpable organomegaly or masses. Extremities: Normal skin color and turgor. No cyanosis, rash, ulceration, clubbing, or edema. Radial and pedal pulses are 2/4 bilaterally. Neurological: No focal deficits. Strength and sensation are grossly intact. Results CBC & Chem 7: 08/03/17 07:06 08/03/17 07:06 Labs: Abnormal Lab Results - Last 24 Hours (Table) 08/03/17 08/03/17 Range/Units 07:06 07:06 WBC 14.3 H (3.8-10.6) k/uL Neutrophils # 10.4 H (1.3-7.7) k/uL Chloride 108 H (98-107) mmol/L CT scan - chest: report reviewed (Dr. Rich) Assessment and Plan (1) Abdominal pain Narrative/Plan: 57-year-old female admitted with acute chest and upper abdominal pain with nonbloody diarrhea since improved with nonspecific elevation of lipase and normal amylase with underlying history of fibromyalgia lupus, irritable bowel syndrome and idiopathic pancreatitis in the past. Possible subacute pancreatitis overall presentation was nonspecific with minimal elevation of lipase. Possible exacerbation of IBS. Underlying autoimmune pancreatitis cannot be excluded with history of lupus. Current Visit: Yes Status: Acute Code(s): R10.9 - UNSPECIFIED ABDOMINAL PAIN SNOMED Code(s): 54192255 (2) Elevated lipase Current Visit: Yes Status: Acute Code(s): R74.8 - ABNORMAL LEVELS OF OTHER SERUM ENZYMES SNOMED Code(s): 083438569 (3) Chest pain Current Visit: Yes Status: Acute Code(s): R07.9 - CHEST PAIN, UNSPECIFIED SNOMED Code(s): 45683045 Plan: 1. Diarrhea has improved however if recurs obtain stool studies. 2. We'll obtained IgG subclass 1-4 and TRUPTI for evaluation of autoimmune pancreatitis. 3. Return to office after discharge for reevaluation. No further workup at this time lipase has normalized. Discharge per medicine. Thank you for this kind referral and the opportunity to participate in the care of your patient. This consultation was discussed with Dr. Rich. The impression and plan of care have been directed as dictated.
[2017-08-04 11:49] LABS: IgG Subclass 3 17.2 mg/dL (11.0-85.0); IgG Subclass 4 38.3 mg/dL (3.0-175.0)
== END 2017-08-03 13:00 | disposition home or self-care (01) ==
LOC: EC 04:04 → 3OBS 07:33
PROVIDERS: ADMIT Internal Medicine; ATTEND Internal Medicine
DX: R07.89 Other chest pain (principal); R10.13 Epigastric pain; R74.8 Abnormal levels of other serum enzymes; R00.2 Palpitations; J45.20 Mild intermittent asthma, uncomplicated; K58.0 Irritable bowel syndrome with diarrhea; M32.9 Systemic lupus erythematosus, unspecified; M79.7 Fibromyalgia; K21.9 Gastro-esophageal reflux disease without esophagitis; N39.0 Urinary tract infection, site not specified; K57.90 Diverticulosis of intestine, part unspecified, without perforation or abscess without bleeding; F43.9 Reaction to severe stress, unspecified; Z79.899 Other long term (current) drug therapy; I25.2 Old myocardial infarction; Z88.1 Allergy status to other antibiotic agents; Z91.030 Bee allergy status; Z91.048 Other nonmedicinal substance allergy status; Z91.040 Latex allergy status; Z90.49 Acquired absence of other specified parts of digestive tract; Z87.891 Personal history of nicotine dependence; Z98.1 Arthrodesis status; Z82.49 Family history of ischemic heart disease and other diseases of the circulatory system; Z82.3 Family history of stroke; Z80.0 Family history of malignant neoplasm of digestive organs
CPT/HCPCS: 99285 ×2; 96374 ×2; 96375 ×3; 96361 ×6; 96376 ×3; 36415; 93005; 93306; 85379; 80061; 80053 ×3; 82150; 82550; 82553; 83690 ×3; 83735; 84484; 85025 ×3; 82787; 86038; 71045; 71275; G0378 ×3; J2270 ×3; J1200 ×3; Q9967; J2405 ×3

== ENCOUNTER → 2017-08-15 | Outpatient (CLI) | payer OTHER ==
--- NOTE | 2017-08-15 09:54 | US ---
EXAMINATION TYPE: US carotid duplex BILAT DATE OF EXAM: 08/15/2017 COMPARISON: NONE CLINICAL HISTORY: I49.9 Arrythmia, Lupus M32.10. EXAM MEASUREMENTS: RIGHT: Peak Systolic Velocity (PSV) cm/sec ----- Right CCA: 55.9 ----- Right ICA: 74.3 ----- Right ECA: 72.1 ICA/CCA ratio: 1.3 RIGHT: End Diastole cm/sec ----- Right CCA: 18.6 ----- Right ICA: 30.9 ----- Right ECA: 13.6 LEFT: Peak Systolic Velocity (PSV) cm/sec ----- Left CCA: 56.4 ----- Left ICA: 83.9 ----- Left ECA: 52.4 ICA/CCA ratio: 1.5 LEFT: End Diastole cm/sec ----- Left CCA: 21.2 ----- Left ICA: 36.6 ----- Left ECA: 13.1 VERTEBRALS (direction of flow): Right Vertebral: Antegrade Left Vertebral: Antegrade Rhythm: Normal Mild atherosclerotic changes with no significant velocity elevations. IMPRESSION: Minimal grayscale atheromatous changes with no hemodynamically significant stenosis with in either carotid arterial system is visualized.
--- NOTE | 2017-08-15 12:14 | EST ---
EXERCISE STRESS DATE OF SERVICE: 08/15/2017 AGE: 57 SEX: Female HT: 65" WT: 145 pounds PROTOCOL: Laureano STAGE: II DURATION OF EXERCISE: 6 minutes 19 seconds HEART RATE REST: 63 BLOOD PRESSURE REST: 108/51 MAXIMUM HEART RATE ACHIEVED: 136 MAXIMUM BLOOD PRESSURE: 169/86 85% MPHR: 138 100% MPHR: 162 METS: INDICATIONS: CLINICAL INFORMATION: Baseline EKG revealed normal sinus rhythm without significant ST-T changes. Patient walked on standard Laureano protocol for 6 minutes 19 seconds and achieved a maximum heart rate of 136 beats per minute which is almost 85% of predicted maximal. She had shortness of breath and also complained of some chest pressure. EKG revealed rare isolated PVCs. There was some baseline artifact, but no significant ST-segment changes to suggest ischemia were noted. Upsloping nonspecific ST-segment changes were noted. By EKG criteria, this is a negative stress test with fair exercise capacity with subjective symptoms of chest pressure, which seems atypical. This is therefore a negative stress test objectively. The patient achieved almost 85% of her predicted maximal heart rate. MMODL / IJN: [id number] /
== END | disposition home or self-care (01) ==
LOC: RADUSMAIN 09:13
PROVIDERS: ATTEND Internal Medicine Interventional Cardiology
DX: I65.23 Occlusion and stenosis of bilateral carotid arteries (principal); M32.10 Systemic lupus erythematosus, organ or system involvement unspecified
CPT/HCPCS: 93017; 93880

== ENCOUNTER 2017-08-28 11:12 | Emergency (ER) | payer OTHER ==
--- NOTE | 2017-08-28 12:15 | ED ---
General Adult HPI - General Chief complaint: Abdominal Pain Stated complaint: Viral infection Time Seen by Provider: 08/28/17 11:41 Source: patient Mode of arrival: ambulatory Limitations: no limitations - History of Present Illness Initial comments: Justice Benton is a 57 yo female with PMH listed below who presents to the emergency department today for reevaluation of persistent abdominal pain. She reports that she was seen a couple of weeks ago at our emergency department and subsequently admitted to the hospital for what she describes as an infection throughout her entire abdomen including her liver and pancreas. She states that she was discharged home from the hospital with a diagnosis of irritable bowel, she was given Bentyl and antibiotics which she completed. She subsequently followed up with her primary care physician due to persistent symptoms was given a repeat course of antibiotics including Bactrim and Flagyl, in addition she was advised by her PCP to discontinue Bentyl which she did. Patient reports that she has continued to experience abdominal cramping with intermittent episodes of constipation and diarrhea. In addition she has developed vaginal irritation and white discharge which she is concerned may be a yeast infection. She describes feeling as though there is a plunger in her lower abdomen pulling her guts out through her abdomen. She has not had any relief of any of her symptoms since her previous evaluation , she doesn't feel the antibiotics have helped at all. Patient reports she had similar symptoms approximately one year ago, she was diagnosed with pancreatitis and diverticulitis at that time, she has subsequently followed up with gastroenterology she has had a colonoscopy as well as followed up with cardiology for outpatient stress tests and cardiac rule out due to the epigastric abdominal discomfort. Orts that despite all of the testing they do not have a definitive diagnosis of her causes of recurrent abdominal pain other than irritable bowel, and she has no explanation for episodes of elevated lipase. Patient also reports she has begun experiencing vaginal discharge for a number of weeks, this began after she started oral antibiotics. She has followed with her PCP and been prescribed Diflucan 200mg daily x3 days on 2 different attempts. - Related Data Home Medications Medication Instructions Recorded Confirmed Albuterol Sulfate [Ventolin HFA] 1 - 2 puff INHALATION RT-QID PRN 11/02/1608/28 Hydroxychloroquine Sulfate 200 mg PO BID 11/02/16 08/28/17 [Plaquenil] Allergies Allergy/AdvReac Type Severity Reaction Status Date / Time bee venom protein (honey bee) Allergy Severe Anaphylaxis Verified 08/28/17 11:54 adhesive tape AdvReac Unknown Tears skin Verified 08/28/17 11:54 latex AdvReac Itching, Verified 08/28/17 11:54 skin peels Tetracyclines AdvReac Rash/Hives Verified 08/28/17 11:54 Review of Systems ROS Statement: Those systems with pertinent positive or pertinent negative responses have been documented in the HPI. ROS Other: All systems not noted in ROS Statement are negative. Constitutional: Denies: fever Respiratory: Denies: cough, dyspnea Cardiovascular: Denies: chest pain, palpitations Endocrine: Reports: fatigue Gastrointestinal: Reports: abdominal pain, nausea, diarrhea, constipation. Denies: vomiting Genitourinary: Reports: frequency, discharge Musculoskeletal: Denies: back pain Skin: Denies: rash, lesions Neurological: Denies: headache, weakness Psychiatric: Denies: anxiety, depression Hematological/Lymphatic: Denies: easy bleeding Past Medical History Past Medical History: Asthma, Fibromyalgia, GERD/Reflux, Myocardial Infarction ( [place]), Osteoarthritis (OA) Additional Past Medical History / Comment(s): LUPUS, HX OF DIVERTICULITIS, CONSTIPATION AND DIARRHEA. , RECEIVING ROOSTER COMB INJECTIONS IN KNEES, STATES ABNORMAL LIVER TESTS. Last Myocardial Infarction Date:: unknown History of Any Multi-Drug Resistant Organisms: None Reported Past Surgical History: Back Surgery, Cholecystectomy, Hysterectomy, Joint Replacement, Orthopedic Surgery, Tonsillectomy Additional Past Surgical History / Comment(s): RIGHT TOTAL HIP , LOWER BACK FUSION, CERVICAL SURGERY WITH HARDWARE, WIRED RIGHT SHOULDER, NERVE RIGHT ELBOW. Past Anesthesia/Blood Transfusion Reactions: Postoperative Nausea & Vomiting ( PONV) Past Psychological History: No Psychological Hx Reported Smoking Status: Former smoker Past Alcohol Use History: None Reported Past Drug Use History: Marijuana - Past Family History Mother Family Medical History: Cancer Additional Family Medical History / Comment(s): BREAST CANCER WITH METS. Father Family Medical History: Coronary Artery Disease (CAD) Additional Family Medical History / Comment(s): FATHER AT THE AGE OF 75YRS from broken heart. He has history of CVA. Daughter(s) Additional Family Medical History / Comment(s): Patient has 2 adult children with no major medical problems. General Exam Limitations: no limitations General appearance: alert, in no apparent distress Head exam: Present: atraumatic, normocephalic Eye exam: Present: normal appearance, PERRL ENT exam: Present: normal exam Neck exam: Present: normal inspection Respiratory exam: Present: normal lung sounds bilaterally. Absent: respiratory distress Cardiovascular Exam: Present: regular rate, normal rhythm GI/Abdominal exam: Present: soft, tenderness, normal bowel sounds. Absent: distended, guarding, rebound, rigid, organomegaly Rectal exam: Present: normal inspection, normal rectal tone External exam: Present: lesions (boil on right labia, no surrounding erythema or cellulitis, no tenderness to palpation) Speculum exam: Present: other (clear white discharge, no erythema, bleeding, injury. Patient is S/P Hysterectomy) Extremities exam: Present: normal inspection, full ROM Back exam: Present: normal inspection Neurological exam: Present: alert, oriented X3 Psychiatric exam: Present: anxious Skin exam: Present: warm, dry, intact Course Vital Signs 08/28/17 08/28/17 11:30 13:10 Temperature 98.5 F 98.3 F Pulse Rate 85 55 L Respiratory 18 20 Rate Blood Pressure 127/84 133/60 O2 Sat by Pulse 98 97 Oximetry Medical Decision Making - Medical Decision Making Patient was seen and evaluated, history was obtained from the patient and review of previous medical records Labs and imaging were ordered Labs with mild leukocytosis, hypercalcemia IV fluids infusing Pelvic exam with physiologic discharge, I offered the patient testing for sexual transmitted infections due to the persistent vaginal discharge, however she declined this stating that she has absolutely no concern for any extra transmitted infections that she has been in a monogamous relationship for 25 years. Patient states that she has follow-up with the women's clinic on the of this month and will have a Pap smear at that time. Patient declined Treatment for sexual transmitted infections. I offered the patient a repeat computed tomography scan of the abdomen to reevaluate her abdominal pain. Patient states that this time she doesn't feel that she needs further imaging as her symptoms have not changed since her previous imaging. Patient states relief that there was a normal pelvic exam and is agreeable to plan with discharge home, she will resume oral Bentyl and follow up with gastroenterology on Monday as land. Considering the patient just finished a three-day course of Diflucan, I do not feel that additional doses are indicated at this time. I recommended that she follow up with women's health as she has planned. At this time I do not feel there is any emergent condition requiring intervention, I suspect that the patient's chronic abdominal pain may be related to her irritable bowel and she needs to follow up with gastroenterology. All questions pertaining to care were answered the best of my ability, patient was advised to return to the emergency department for any worsening symptoms or development of new or concerning symptoms. Patient was discharged home in stable condition. - Lab Data Result diagrams: 08/28/17 12:15 08/28/17 12:15 Lab Results 08/28/17 08/28/17 08/28/17 Range/Units 12:15 12:15 12:25 WBC 11.7 H (3.8-10.6) k/uL RBC 4.79 (3.80-5.40) m/uL Hgb 14.8 (11.4-16.0) gm/dL Hct 43.1 (34.0-46.0) % MCV 89.9 (80.0-100.0) fL MCH 30.9 (25.0-35.0) pg MCHC 34.4 (31.0-37.0) g/dL RDW 12.4 (11.5-15.5) % Plt Count 310 (150-450) k/uL Neutrophils % 75 % Lymphocytes % 17 % Monocytes % 5 % Eosinophils % 1 % Basophils % 0 % Neutrophils # 8.8 H (1.3-7.7) k/uL Lymphocytes # 2.0 (1.0-4.8) k/uL Monocytes # 0.6 (0-1.0) k/uL Eosinophils # 0.1 (0-0.7) k/uL Basophils # 0.0 (0-0.2) k/uL Sodium 142 (137-145) mmol/L Potassium 4.4 (3.5-5.1) mmol/L Chloride 107 (98-107) mmol/L Carbon Dioxide 23 (22-30) mmol/L Anion Gap 12 mmol/L BUN 15 (7-17) mg/dL Creatinine 0.80 (0.52-1.04) mg/dL Est GFR (CKD-EPI)AfAm >90 (>60 ml/min/1.73 sqM) Est GFR (CKD-EPI)NonAf 82 (>60 ml/min/1.73 sqM) Glucose 92 (74-99) mg/dL Calcium 10.3 H (8.4-10.2) mg/dL Magnesium 1.9 (1.6-2.3) mg/dL Total Bilirubin 0.3 (0.2-1.3) mg/dL AST 22 (14-36) U/L ALT 33 (9-52) U/L Alkaline Phosphatase 93 (38-126) U/L Total Protein 7.5 (6.3-8.2) g/dL Albumin 4.3 (3.5-5.0) g/dL Lipase 144 (23-300) U/L Urine Color Yellow Urine Appearance Clear (Clear) Urine pH 6.5 (5.0-8.0) Ur Specific [place] 1.026 (1.001-1.035) Urine Protein 1+ H (Negative) Urine Glucose (UA) Negative (Negative) Urine Ketones Negative (Negative) Urine Blood Trace H (Negative) Urine Nitrite Negative (Negative) Urine Bilirubin Negative (Negative) Urine Urobilinogen 2.0 (<2.0) mg/dL Ur Leukocyte Esterase Trace H (Negative) Urine RBC 4 (0-5) /hpf Urine WBC 3 (0-5) /hpf Ur Squamous Epith Cells 4 (0-4) /hpf Urine Mucus Many H (None) /hpf Disposition Clinical Impression: Abdominal pain Disposition: HOME SELF-CARE Condition: Good Instructions: Abdominal Pain (ED) Referrals: Billy Granado DO [Primary Care Provider] - 1-2 days Time of Disposition: 13:56
[2017-08-28 12:27] LABS: Basophils % (A) 0 %; Eosinophils # (A) 0.1 k/uL (0-0.7); Eosinophils % (A) 1 %; HCT 43.1 % (34.0-46.0); HGB 14.8 gm/dL (11.4-16.0); Lymphocytes % (A) 17 %; MCH 30.9 pg (25.0-35.0); MCHC 34.4 g/dL (31.0-37.0); MCV 89.9 fL (80.0-100.0); Mean Platelet Volume 6.7; Monocytes # (A) 0.6 k/uL (0-1.0); Monocytes % (A) 5 %; Neutrophils # (A) 8.8 k/uL (1.3-7.7); Neutrophils % (A) 75 %; Platelet Count 310 k/uL (150-450); RBC 4.79 m/uL (3.80-5.40); RDW 12.4 % (11.5-15.5); WBC 11.7 k/uL (3.8-10.6)
[2017-08-28 12:38] LABS: Appearance,Urine Clear (Clear); Bilirubin,Urine Negative (Negative); Blood,Urine Trace (Negative); Color,Urine Yellow; Glucose,Urine (UA) Negative (Negative); Ketones,Urine Negative (Negative); Leukocyte Esterase,Urine Trace (Negative); Mucus,Urine Many /hpf; Nitrite,Urine Negative (Negative); PH, Urine 6.5 (5.0-8.0); Protein,Urine 1+ (Negative); RBC,Urine 4 /hpf (0-5); Specific Gravity,Urine 1.026 (1.001-1.035); Squamous Epithelial Cell,Urine 4 /hpf (0-4); WBC,Urine 3 /hpf (0-5)
[2017-08-28 12:38] LABS: ALT 33 U/L (9-52); AST 22 U/L (14-36); Albumin 4.3 g/dL (3.5-5.0); Alkaline Phosphatase 93 U/L (38-126); Anion Gap 12 mmol/L; Blood Urea Nitrogen 15 mg/dL (7-17); Calcium 10.3 mg/dL (8.4-10.2); Carbon Dioxide 23 mmol/L (22-30); Chloride 107 mmol/L (98-107); Glucose 92 mg/dL (74-99); Lipase 144 U/L (23-300); Magnesium 1.9 mg/dL (1.6-2.3); Potassium 4.4 mmol/L (3.5-5.1); Sodium 142 mmol/L (137-145); Total Bilirubin 0.3 mg/dL (0.2-1.3); Total Protein 7.5 g/dL (6.3-8.2)
[2017-08-28] MEDS ORDERED: SODIUM CHLORIDE 0.9% 1,000 ML IV ONE (12:49)
[2017-08-28] MEDS ORDERED: DICYCLOMINE 10 MG/ML 2 ML AMP IM STA (13:26)
[2017-08-28 14:42] VITALS: BP 117/64; PULSE 88; RESP 18; TEMP 97.3
== END 2017-08-28 14:35 | disposition home or self-care (01) ==
LOC: EC 11:12
DX: R10.9 Unspecified abdominal pain (principal); N89.8 Other specified noninflammatory disorders of vagina; I25.2 Old myocardial infarction; M19.90 Unspecified osteoarthritis, unspecified site; Z90.49 Acquired absence of other specified parts of digestive tract; Z90.710 Acquired absence of both cervix and uterus; Z87.891 Personal history of nicotine dependence; Z79.899 Other long term (current) drug therapy; Z91.030 Bee allergy status; Z91.048 Other nonmedicinal substance allergy status; Z91.040 Latex allergy status; Z88.1 Allergy status to other antibiotic agents
CPT/HCPCS: 36415; 80053; 83690; 83735; 85025; 81001; 87086; 99284; 96360; 96372; J0500

== ENCOUNTER → 2017-12-26 | Outpatient (CLI) | payer OTHER ==
--- NOTE | 2017-12-26 17:00 | US ---
EXAMINATION TYPE: US venous doppler duplex LE RT DATE OF EXAM: 12/26/2017 2:42 PM COMPARISON: NONE CLINICAL HISTORY: 57-year-old female M79.661,R22.41 PAIN AND SWELLING OF RT LOWER LIMB. Right leg rachel n and swelling x 1 day SIDE PERFORMED: Right TECHNIQUE: The lower extremity deep venous system is examined utilizing real time linear array sonog miguel angel with graded compression, doppler sonography and color-flow sonography. FINDINGS: VESSELS IMAGED: External Iliac Vein (EIV) Common Femoral Vein Deep Femoral Vein Greater Saphenous Vein * Femoral Vein Popliteal Vein Small Saphenous Vein * Proximal Calf Veins (* superficial vessels) Right Leg: Appears negative for DVT IMPRESSION: No evidence for DVT within the right lower extremity imaged from the groin to the upper calf.
== END | disposition home or self-care (01) ==
LOC: RADUSWWP 14:08
PROVIDERS: ATTEND Family Medicine
DX: M79.661 Pain in right lower leg (principal); R22.41 Localized swelling, mass and lump, right lower limb; Z88.1 Allergy status to other antibiotic agents

== ENCOUNTER 2021-03-01 05:24 | Observation (INO) | payer OTHER ==
--- NOTE | 2021-03-01 05:41 | ED ---
Altered Mental Status HPI - General Stated Complaint: Afib Time Seen by Provider: 03/01/21 05:33 Source: EMS Mode of arrival: EMS Limitations: no limitations - History of Present Illness Initial Comments: this patient is a 61-year-old woman brought by ambulance to be evaluated for altered mental status. On arrival, the patient is alert. She is oriented to person and recognizes she is in the hospital but could not state the date. The patient denies complaints here but does not remember what happened prior to arrival. The patient's long-time partner states that he had gotten up to use the bathroom and then when he went back to bed found that the patient was breathing funny and then she became stiff and he was not able to wake her. He called EMS. MD Complaint: altered mental status -: minutes(s) Severity: severe Consistency of Symptoms: unknown Context: history of similar presentation - Related Data Home Medications Medication Instructions Recorded Confirmed Albuterol Sulfate [Proair Hfa] 2 puff INHALATION RT-QID PRN 03/01/21 03/01/21 Pantoprazole Sodium [Protonix] 40 mg PO DAILY 03/01/21 03/01/21 traZODone HCL [Desyrel] 50 mg PO HS 03/01/21 03/01/21 Allergies Allergy/AdvReac Type Severity Reaction Status Date / Time bee venom protein (honey bee) Allergy Severe Anaphylaxis Verified 03/01/21 07:55 adhesive tape AdvReac Unknown Tears skin Verified 03/01/21 07:55 latex AdvReac Itching, Verified 03/01/21 07:55 skin peels Tetracyclines AdvReac Rash/Hives Verified 03/01/21 07:55 Review of Systems ROS Statement: Those systems with pertinent positive or pertinent negative responses have been documented in the HPI. ROS Other: All systems not noted in ROS Statement are negative. Constitutional: Denies: fever, chills, weakness Eyes: Denies: vision change Respiratory: Denies: cough, dyspnea Cardiovascular: Denies: chest pain, palpitations, orthopnea, edema, syncope Gastrointestinal: Denies: abdominal pain, nausea, vomiting, diarrhea Genitourinary: Denies: dysuria, hematuria Musculoskeletal: Denies: back pain Skin: Denies: rash Neurological: Denies: headache, weakness, numbness Past Medical History Past Medical History: Asthma, Fibromyalgia, GERD/Reflux, Myocardial Infarction ([place]), Osteoarthritis (OA) Additional Past Medical History / Comment(s): LUPUS, HX OF DIVERTICULITIS, CON STIPATION AND DIARRHEA. , RECEIVING ROOSTER COMB INJECTIONS IN KNEES, STATES ABNORMAL LIVER TESTS.chronic yeast infections Last Myocardial Infarction Date:: unknown History of Any Multi-Drug Resistant Organisms: None Reported Past Surgical History: Back Surgery, Cholecystectomy, Hysterectomy, Joint Replacement, Orthopedic Surgery, Tonsillectomy Additional Past Surgical History / Comment(s): RIGHT TOTAL HIP , LOWER BACK FUSION, CERVICAL SURGERY WITH HARDWARE, WIRED RIGHT SHOULDER, NERVE RIGHT ELBOW. Past Anesthesia/Blood Transfusion Reactions: Postoperative Nausea & Vomiting (PONV) Past Psychological History: No Psychological Hx Reported Smoking Status: Current every day smoker Past Alcohol Use History: None Reported, Rare Past Drug Use History: Marijuana - Past Family History Mother Family Medical History: Cancer (Breast) Additional Family Medical History / Comment(s): BREAST CANCER WITH METS. Father Family Medical History: Coronary Artery Disease (CAD) Additional Family Medical History / Comment(s): FATHER AT THE AGE OF 75YRS from broken heart. He has history of CVA. Daughter(s) Additional Family Medical History / Comment(s): Patient has 2 adult children with no major medical problems. General Exam Limitations: no limitations General appearance: alert, in no apparent distress Head exam: Present: atraumatic, normocephalic Eye exam: Present: normal appearance. Absent: scleral icterus, conjunctival injection ENT exam: Present: normal oropharynx Neck exam: Present: normal inspection, full ROM. Absent: tenderness, meningismus Respiratory exam: Present: normal lung sounds bilaterally. Absent: respiratory distress, wheezes, rales, rhonchi, stridor Cardiovascular Exam: Present: tachycardia, irregular rhythm, normal heart sounds. Absent: systolic murmur, diastolic murmur, rubs, gallop GI/Abdominal exam: Present: soft. Absent: distended, tenderness, guarding, rebound, rigid, mass Extremities exam: Present: normal inspection, normal capillary refill. Absent: pedal edema, calf tenderness Back exam: Present: normal inspection. Absent: CVA tenderness (R), CVA tenderness (L) Neurological exam: Present: alert, CN II-XII intact. Absent: oriented X3 (patie nt is disoriented to date), motor sensory deficit Skin exam: Present: warm, dry, intact, normal color. Absent: rash Course Vital Signs 03/01/21 03/01/21 05:25 06:55 Temperature 97.3 F L Pulse Rate 116 H 61 Respiratory 16 18 Rate Blood Pressure 133/75 115/74 O2 Sat by Pulse 89 L 99 Oximetry Medical Decision Making - Medical Decision Making patient is 61-year-old woman who had episode of altered mental status at home. The patient has alert and appropriate. While patient was in the department however she did develop episode where she reported strange abnormal smell and taste, patient is given Ativan. Patient be admitted for further evaluation and treatment of suspected seizure. - Lab Data Result diagrams: 03/01/21 05:47 03/01/21 05:47 Lab Results 03/01/21 03/01/21 03/01/21 Range/Units 05:47 05:47 05:47 WBC 13.2 H (3.8-10.6) k/uL RBC 4.74 (3.80-5.40) m/uL Hgb 14.7 (11.4-16.0) gm/dL Hct 44.7 (34.0-46.0) % MCV 94.3 (80.0-100.0) fL MCH 30.9 (25.0-35.0) pg MCHC 32.8 (31.0-37.0) g/dL RDW 12.3 (11.5-15.5) % Plt Count 281 (150-450) k/uL MPV 8.1 Neutrophils % 88 % Lymphocytes % 8 % Monocytes % 3 % Eosinophils % 1 % Basophils % 0 % Neutrophils # 11.5 H (1.3-7.7) k/uL Lymphocytes # 1.0 (1.0-4.8) k/uL Monocytes # 0.4 (0-1.0) k/uL Eosinophils # 0.1 (0-0.7) k/uL Basophils # 0.1 (0-0.2) k/uL PT 9.7 (9.0-12.0) sec INR 0.9 (<1.2) APTT 21.9 L (22.0-30.0) sec Sodium 137 (137-145) mmol/L Potassium 4.1 (3.5-5.1) mmol/L Chloride 106 (98-107) mmol/L Carbon Dioxide 20 L (22-30) mmol/L Anion Gap 11 mmol/L BUN 15 (7-17) mg/dL Creatinine 0.77 (0.52-1.04) mg/dL Est GFR (CKD-EPI)AfAm >90 (>60 ml/min/1.73 sqM) Est GFR (CKD-EPI)NonAf 83 (>60 ml/min/1.73 sqM) Glucose 180 H (74-99) mg/dL Calcium 9.7 (8.4-10.2) mg/dL Total Bilirubin 0.5 (0.2-1.3) mg/dL AST 55 H (14-36) U/L ALT 31 (4-34) U/L Alkaline Phosphatase 128 H (38-126) U/L Troponin I (0.000-0.034) ng/mL Total Protein 7.5 (6.3-8.2) g/dL Albumin 4.2 (3.5-5.0) g/dL 03/01/21 Range/Units 05:47 WBC (3.8-10.6) k/uL RBC (3.80-5.40) m/uL Hgb (11.4-16.0) gm/dL Hct (34.0-46.0) % MCV (80.0-100.0) fL MCH (25.0-35.0) pg MCHC (31.0-37.0) g/dL RDW (11.5-15.5) % Plt Count (150-450) k/uL MPV Neutrophils % % Lymphocytes % % Monocytes % % Eosinophils % % Basophils % % Neutrophils # (1.3-7.7) k/uL Lymphocytes # (1.0-4.8) k/uL Monocytes # (0-1.0) k/uL Eosinophils # (0-0.7) k/uL Basophils # (0-0.2) k/uL PT (9.0-12.0) sec INR (<1.2) APTT (22.0-30.0) sec Sodium (137-145) mmol/L Potassium (3.5-5.1) mmol/L Chloride (98-107) mmol/L Carbon Dioxide (22-30) mmol/L Anion Gap mmol/L BUN (7-17) mg/dL Creatinine (0.52-1.04) mg/dL Est GFR (CKD-EPI)AfAm (>60 ml/min/1.73 sqM) Est GFR (CKD-EPI)NonAf (>60 ml/min/1.73 sqM) Glucose (74-99) mg/dL Calcium (8.4-10.2) mg/dL Total Bilirubin (0.2-1.3) mg/dL AST (14-36) U/L ALT (4-34) U/L Alkaline Phosphatase (38-126) U/L Troponin I <0.012 (0.000-0.034) ng/mL Total Protein (6.3-8.2) g/dL Albumin (3.5-5.0) g/dL - EKG Data -: EKG Interpreted by [facility] EKG shows normal: axis (rrate approximately 127 bpm), intervals (normal), QRS complexes (possible old septal infarct) Rate: tachycardia Interpretation: other (Atrial fibrillation with rapid ventricular response) Disposition Referrals: Billy Granado DO [REFERRING] - 1-2 days
[2021-03-01 06:22] LABS: Basophils # (A) 0.1 k/uL (0-0.2); Basophils % (A) 0 %; Eosinophils # (A) 0.1 k/uL (0-0.7); Eosinophils % (A) 1 %; HCT 44.7 % (34.0-46.0); HGB 14.7 gm/dL (11.4-16.0); Lymphocytes % (A) 8 %; MCH 30.9 pg (25.0-35.0); MCHC 32.8 g/dL (31.0-37.0); MCV 94.3 fL (80.0-100.0); Mean Platelet Volume 8.1; Monocytes # (A) 0.4 k/uL (0-1.0); Monocytes % (A) 3 %; Neutrophils # (A) 11.5 k/uL (1.3-7.7); Neutrophils % (A) 88 %; Platelet Count 281 k/uL (150-450); RBC 4.74 m/uL (3.80-5.40); RDW 12.3 % (11.5-15.5); WBC 13.2 k/uL (3.8-10.6)
[2021-03-01 06:39] LABS: INR 0.9 (<1.2); Partial Thromboplastin Time 21.9 sec (22.0-30.0); Prothrombin Time 9.7 sec (9.0-12.0)
[2021-03-01 06:41] LABS: ALT 31 U/L (4-34); AST 55 U/L (14-36); African American GFR (CKD) >90 (>60 ml/min/1.73 sqM); Albumin 4.2 g/dL (3.5-5.0); Alkaline Phosphatase 128 U/L (38-126); Anion Gap 11 mmol/L; Blood Urea Nitrogen 15 mg/dL (7-17); Calcium 9.7 mg/dL (8.4-10.2); Carbon Dioxide 20 mmol/L (22-30); Chloride 106 mmol/L (98-107); Glucose 180 mg/dL (74-99); Non-African American GFR(CKD) 83 (>60 ml/min/1.73 sqM); Potassium 4.1 mmol/L (3.5-5.1); Sodium 137 mmol/L (137-145); Total Bilirubin 0.5 mg/dL (0.2-1.3); Total Protein 7.5 g/dL (6.3-8.2)
--- NOTE | 2021-03-01 07:29 | CT ---
EXAMINATION TYPE: CT brain wo con DATE OF EXAM: 03/01/2021 COMPARISON: None HISTORY: 61-year-old female confusion, altered mental status TECHNIQUE: Examination was done in axial plane without intravenous contrast. Coronal and sagittal r econstructions performed. CT DLP: 1084.4 mGycm Automated exposure control for dose reduction was used. FINDINGS: There is no evidence of acute intracranial hemorrhage, acute ischemic changes, mass, mass-effect, or extra-axial fluid collection. There is no effacement of cerebral sulci or basal subarachnoid cister ns. There is no hydrocephalus. There is no midline shift. Holguin-white matter distinction is preserv ed. Paranasal sinuses and mastoid air cells well pneumatized. Orbits and globes are intact. Melter Clerk image s hows partial visualization of ACDF hardware. IMPRESSION: No acute intracranial abnormality seen.
--- NOTE | 2021-03-01 07:36 | XR ---
EXAMINATION TYPE: XR chest 1V DATE OF EXAM: 03/01/2021 COMPARISON: 08/01/2017 HISTORY: 61-year-old female confusion, altered mental status TECHNIQUE: Single frontal view of the chest is obtained. FINDINGS: Heart normal size. Aorta and pulmonary vasculature within normal limits. Mild hyperinflation mild int erstitial prominence is similar. Patchy medial right basilar opacity noted. No pleural effusion. ACDF hardware. IMPRESSION: Suspect underlying COPD. There is patchy atelectasis versus developing infiltrate/pneumonia at the me dial right base. Clinically correlate.
[2021-03-01] MEDS ORDERED: LORazepam 2 MG/ML INJ IV STA (07:56)
[2021-03-01] MEDS ORDERED: NALOXONE 0.4 MG/ML 1 ML VIAL IV PRN (07:56)
[2021-03-01] MEDS ORDERED: ALBUTEROL NEBULIZED 2.5 MG/3 ML INHALATION PRN (07:59)
[2021-03-01] MEDS: PANTOPRAZOLE 40 MG TABLET PO SCH (08:19)
[2021-03-01] MEDS: FAMOTIDINE 20 MG TAB PO SCH ×2 (08:19→21:48)
[2021-03-01] MEDS: SODIUM CHLORIDE 0.9% 1,000 ML IV SCH (08:19)
[2021-03-01] MEDS: ACETAMINOPHEN TAB 325 MG TAB PO PRN ×2 (08:22→21:42)
[2021-03-01] MEDS: DILTIAZEM ORAL 60 MG TAB PO SCH ×2 (08:44→20:08)
[2021-03-01] MEDS: ENOXAPARIN 60 MG/0.6 ML SYRINGE SQ SCH (08:45)
--- NOTE | 2021-03-01 09:02 | P.HPIM ---
<Rachid Marroquin - Last Filed: 03/01/21 16:35> History of Present Illness H&P Date: 03/01/21 History of Presenting Illness: Patient is a 61-year-old female with a past medical history of CAD with previous [place], GERD, fibromyalgia, lupus, nicotine use, cannabis use, and chronic back pain status post previous spinal fusion. Patient presented to the emergency department this morning with reports of altered mental status along with new onset witnessed seizure-like activity after being found by her in bed making grunting noises, foaming at the mouth, and with arms extended and stiff. In the emergency department, pt initially arrived alert and oriented but had episode in which she reported experiencing an abnormal taste and smell and was given ativan which seem to resolve complaint. EKG completed revealing A. fib RVR at [address] depression noted in inferior/lateral leads II, III, aVF, V5 and V6. Chest x-ray reporting mild hyperinflation and interstitial prominence suspect underlying COPD along with patchy atelectasis versus developing and infiltrate/pneumonia at medial right base. CT brain negative for acute intercranial process. Lab findings revealed mild leukocytosis with WBC count of 13.2 and slightly elevated AST of 55 and alkaline phosphatase of 128. Troponin negative at less than 0.012. Covid PCR negative. Urinalysis positive for nitrites, leukocytes and 63 WBCs. Urine drug screen positive for marijuana and benzodiazepines. upon physical exam, patient alert and oriented to person, place, and time. She is somewhat of a poor historian and reports having some memory loss. Pt and her at bedside reports that patient has been under c are of air drier, Dr. Roque and neurologist Dr. Early because she has been experiencing strange auras and will get a strange taste and smell followed by memory loss. They report she has undergone CT scans, MRIs, MRAs, and all have been negative. They state she recently had loop recorder in place and have an appointment with air drier, Dr. Roque tomorrow for the results. They deny patient having any previously known atrial fibrillation and deny patient previously being diagnosed with seizure disorder. Patient did bite lip during episode of alteration in mental status/seizure-like activity, but denies having any loss of bowel or bladder. Patient currently denying having any headache, lightheadedness, dizziness, tinnitus, changes in vision or hearing, chest pain or palpitations, shortness of breath, abdominal pain, nausea, vomiting, or experiencing any numbness/tingling/weakness/swelling in her extremities. Review of systems: Pertinent positives and negatives as discussed in HPI, a complete review of systems was performed and all other systems are negative. Physical exam: Vital signs reviewed and stable. General: Nontoxic, no distress and appears stated age. Derm: Skin warm and dry, normal coloration for ethnicity. Head: Atraumatic, normocephalic and symmetric. Eyes: EOMs intact, no lid lag, and anicteric sclera Mouth: no lip lesions, mucus membranes moist Cardiovascular: regular rate and rhythm with normal S1S2, no murmur, positive posterior tibial pulses bilaterally, and cap refill < 2 seconds. At time of assessment patient back in sinus rhythm. Lungs: Respirations even, regular, and unlabored on room air. Lungs CTA bilaterally, no rhonchi, no rales, no wheezing, and no accessory muscle usage. Abdominal: soft, nontender to palpation, no guarding, no appreciable organomegaly Ext: ROM intact. No gross muscle atrophy, no edema, no contractures. movement and sensation intact. Neuro: Speech clear, face symmetrical and CN II-XII grossly intact with no noted focal neuro deficits at time of assessment. Psych: Alert and oriented to person, place, and time she is somewhat of a poor historian and showing periods of confusion/memory loss of recent events during examination. Appropriate and pleasant affect. Assessment and Plan of Care: Seizure-like activity Alteration in mental status CT brain negative for acute intercranial process. Neurology consulted Neuro checks every 4 Seizure precautions, aspiration precautions, and fall precautions in place EEG Obtain records from neurologist, Dr. Early New-onset atrial fibrillation with RVR, converted to NSR -EKG completed revealing A. fib RVR at [address] depression noted in inferior/lateral leads II, III, aVF, V5 and V6. -Troponins negative -Cardiology consult -Telemetry monitoring -Continue therapeutic Lovenox pending further cardiology recommendations, [id number] score 1-2. -Echocardiogram -Obtain Loop recorder results and further records from air drier, Dr. Roque Acute cystitis without hematuria -Urine culture -Continue Rocephin 1 g every 24 hours pending urine culture results. Other chronic medical conditions include: CAD with previous [place], GERD, fibromyalgia, lupus, nicotine use, cannabis use, and chronic back pain status post previous spinal fusion. Continue daily medication regimen. Encourage smoking cessation and explained risks of continued use. Encourage cessation of cannabis use. Symptomatic care and pain management. The patient is admitted with an anticipated greater than 2 midnight stay for evaluation of new-onset atrial fibrillation with RVR and concerns of possible seizure-like activity. Surrogate decision-maker: Patient's CODE STATUS: Full code DVT prophylaxis: Lovenox Discussed with: Patient, RN, and patient's Anticipated discharge date: clinical course to determine Anticipated discharge place: home A total of 45 minutes was spent on the care of this complex patient more than 50% of the time was spent in counseling and care coordination. Past Medical History Past Medical History: Asthma, Fibromyalgia, GERD/Reflux, Myocardial Infarction ([place]), Osteoarthritis (OA) Additional Past Medical History / Comment(s): LUPUS, HX OF DIVERTICULITIS, CONSTIPATION AND DIARRHEA. , RECEIVING ROOSTER COMB INJECTIONS IN KNEES, STATES ABNORMAL LIVER TESTS.chronic yeast infections Last Myocardial Infarction Date:: unknown History of Any Multi-Drug Resistant Organisms: None Reported Past Surgical History: Back Surgery, Cholecystectomy, Hysterectomy, Joint Replacement, Orthopedic Surgery, Tonsillectomy Additional Past Surgical History / Comment(s): RIGHT TOTAL HIP , LOWER BACK FUSION, CERVICAL SURGERY WITH HARDWARE, WIRED RIGHT SHOULDER, NERVE RIGHT ELBOW. Past Anesthesia/Blood Transfusion Reactions: Postoperative Nausea & Vomiting (PONV) Past Psychological History: No Psychological Hx Reported Smoking Status: Current every day smoker Past Alcohol Use History: None Reported, Rare Past Drug Use History: Marijuana - Past Family History Mother Family Medical History: Cancer (Breast) Additional Family Medical History / Comment(s): BREAST CANCER WITH METS. Father Family Medical History: Coronary Artery Disease (CAD) Additional Family Medical History / Comment(s): FATHER AT THE AGE OF 75YRS from broken heart. He has history of CVA. Daughter(s) Additional Family Medical History / Comment(s): Patient has 2 adult children with no major medical problems. Medications and Allergies Home Medications Medication Instructions Recorded Confirmed Type Albuterol Sulfate [Proair Hfa] 2 puff INHALATION RT-QID PRN 03/01/21 03/01/21 History Pantoprazole Sodium [Protonix] 40 mg PO DAILY 03/01/21 03/01/21 History traZODone HCL [Desyrel] 50 mg PO HS 03/01/21 03/01/21 History Allergies Allergy/AdvReac Type Severity Reaction Status Date / Time bee venom protein (honey bee) Allergy Severe Anaphylaxis Verified 03/01/21 07:55 adhesive tape AdvReac Unknown Tears skin Verified 03/01/21 07:55 latex AdvReac Itching, Verified 03/01/21 07:55 skin peels Tetracyclines AdvReac Rash/Hives Verified 03/01/21 07:55 Physical Exam Vitals: Vital Signs Temp Pulse Resp BP Pulse Ox 03/01/21 08:22 99.0 F 69 16 115/63 95 03/01/21 06:55 61 18 115/74 99 03/01/21 05:25 97.3 F L 116 H 16 133/75 89 L Intake and Output 02/28/21 03/01/21 03/01/21 22:59 06:59 14:59 Other: Weight 63.503 kg Results CBC & Chem 7: 03/01/21 05:47 03/01/21 05:47 Labs: Abnormal Lab Results - Last 24 Hours (Table) 03/01/21 03/01/21 03/01/21 Range/Units 05:47 05:47 05:47 WBC 13.2 H (3.8-10.6) k/uL Neutrophils # 11.5 H (1.3-7.7) k/uL APTT 21.9 L (22.0-30.0) sec Carbon Dioxide 20 L (22-30) mmol/L Glucose 180 H (74-99) mg/dL AST 55 H (14-36) U/L Alkaline Phosphatase 128 H (38-126) U/L <Jean Tillman - Last Filed: 03/01/21 18:22> Physical Exam Osteopathic Statement: *. No significant issues noted on an osteopathic structural exam other than those noted in the History and Physical/Consult. Vitals: Vital Signs Temp Pulse Resp BP Pulse Ox 03/01/21 14:44 98.0 F 03/01/21 12:03 99.4 F 71 16 105/56 95 03/01/21 08:22 99.0 F 69 16 115/63 95 03/01/21 06:55 61 18 115/74 99 03/01/21 05:25 97.3 F L 116 H 16 133/75 89 L Intake and Output 03/01/21 03/01/21 03/01/21 06:59 14:59 22:59 Other: Weight 63.503 kg Results CBC & Chem 7: 03/01/21 05:47 03/01/21 05:47 Labs: Abnormal Lab Results - Last 24 Hours (Table) 03/01/21 03/01/21 03/01/21 Range/Units 05:47 05:47 05:47 WBC 13.2 H (3.8-10.6) k/uL Neutrophils # 11.5 H (1.3-7.7) k/uL APTT 21.9 L (22.0-30.0) sec Carbon Dioxide (22-30) mmol/L Glucose (74-99) mg/dL AST (14-36) U/L Alkaline Phosphatase (38-126) U/L Urine Appearance Cloudy H (Clear) Urine Protein Trace H (Negative) Urine Nitrite Positive H (Negative) Ur Leukocyte Esterase Large H (Negative) Urine WBC 63 H (0-5) /hpf Amorphous Sediment Rare H (None) /hpf Urine Bacteria Rare H (None) /hpf Urine Mucus Occasional H (None) /hpf U Benzodiazepines Scrn Detected H (NotDetected) U Marijuana (THC) Screen Detected H (NotDetected) 03/01/21 Range/Units 05:47 WBC (3.8-10.6) k/uL Neutrophils # (1.3-7.7) k/uL APTT (22.0-30.0) sec Carbon Dioxide 20 L (22-30) mmol/L Glucose 180 H (74-99) mg/dL AST 55 H (14-36) U/L Alkaline Phosphatase 128 H (38-126) U/L Urine Appearance (Clear) Urine Protein (Negative) Urine Nitrite (Negative) Ur Leukocyte Esterase (Negative) Urine WBC (0-5) /hpf Amorphous Sediment (None) /hpf Urine Bacteria (None) /hpf Urine Mucus (None) /hpf U Benzodiazepines Scrn (NotDetected) U Marijuana (THC) Screen (NotDetected) Assessment and Plan Assessment: Patient seen and evaluated by me independently. Patient was also seen by HUNG, the original author of this note. I am in agreement with the subjective, physical exam, and assessment and plan as documented with the addition/changes of my exam and assessment below. Gen: awake, alert HEENT: normocephalic, atraumatic, good hearing acuity, moist mucous membranes Resp: good air exchange, breathing comfortably with no accessory muscle use, clear to auscultation bilaterally without wheezes or crackles CVS: good distal perfusion x 4, regular rate and rhythm without murmurs GI: soft, NTTP, ND : no SPT, no CVAT, neal catheter not present MSK: no pitting edema, no clubbing Neuro: 5 out of 5 motor strength, no pronator drift Psych: cooperative, euthymic mood Plan: Neurology consult EEG Cardiology consult No indication for anticoagulation given CHADSVASc of 1 Echocardiogram
[2021-03-01] MEDS ORDERED: MELATONIN 3 MG TABLET PO PRN (09:10)
[2021-03-01] MEDS ORDERED: NICOTINE GUM (POLACRILEX) 2 MG GUM BUCCAL PRN (09:10)
[2021-03-01] MEDS: NICOTINE 21MG/24HR PATCH TRANSDERM SCH (10:23)
[2021-03-01 12:33] LABS: Amorphous Sediment,Urine Rare /hpf; Appearance,Urine Cloudy (Clear); Bacteria,Urine Rare /hpf; Bilirubin,Urine Negative (Negative); Blood,Urine Negative (Negative); Color,Urine Yellow; Glucose,Urine (UA) Negative (Negative); Hyaline Casts,Urine 1 /lpf (0-2); Ketones,Urine Negative (Negative); Leukocyte Esterase,Urine Large (Negative); Mucus,Urine Occasional /hpf; Nitrite,Urine Positive (Negative); Protein,Urine Trace (Negative); RBC,Urine 1 /hpf (0-5); Specific Gravity,Urine 1.023 (1.001-1.035); Squamous Epithelial Cell,Urine 2 /hpf (0-4); Urobilinogen,Urine <2.0 mg/dL (<2.0); WBC,Urine 63 /hpf (0-5)
[2021-03-01 12:49] LABS: Amphetamine Screen,Urine Not Detected (NotDetected); Barbiturate Screen,Urine Not Detected (NotDetected); Benzodiazepines Screen,Urine Detected (NotDetected); Cocaine Screen,Urine Not Detected (NotDetected); Methadone Screen, Urine Not Detected (NotDetected); Opiate Screen,Urine Not Detected (NotDetected); Phencyclidine Screen,Urine Not Detected (NotDetected); Tricyclic Antidepressant,Urine Not Detected (NotDetected); Urn Cannabinoid Scrn Detected (NotDetected)
[2021-03-01 12:50] LABS: Oxycodone Screen, Urine Not Detected (NotDetected)
--- NOTE | 2021-03-01 13:09 | P.CRDCN ---
History of Present Illness History of present illness: HISTORY OF PRESENTING ILLNESS This is a pleasant 61-year-old female past medical history significant for atrial fibrillation, former nicotine dependence, fibromyalgia, diverticulitis, asthma, Lupus, GERD, marijuana use. She follows with Dr. Roque in [facility]. We have been asked to see in consultation for atrial fibrillation. Patient admitted to the emergency department 03/01/21 with altered mental status. Per patient's at bedside, last night they went to bed around 11PM and the patient was in her normal state. Patient's woke up around 5am and found the patient foaming at the mouth, her body was stiff, she was making no movments, she was not responding. EMS was called and patient was brought to the emergency department. Her states this has happened to her before, she actually gets a metallic taste in her mouth, has symptoms of nausea, vomiting, and becomes stiff and unresponsive. He states the patient has undergone MRI, etc unaware of findings. She recently underwent event monitor that was turned in last week. No history of [place], stroke, coronary artery disease or diabetes. Patient was started on by mouth Cardizem 60 mg every 8 hours with improvement in heart rates. DIAGNOSTICS EKG reveals atrial fibrillation with rapid ventricular response, heart rate 127. Unable to view prior EKGs. Chest xray suspect underlying COPD, patchy atelectasis versus developing infiltrate at the medial right base. Laboratory reviewed, WBC 13.2, 114.7, platelets 31, sodium 137, potassium 4.1, BUN 15, serum creatinine 0.7, troponin negative 2, UA positive for UTI, urine tox positive for benzodiazepines and marijuana, COVID-19 PCR negative Current daily medications include Protonix, trazodone, when necessary albuterol She has no cardiac medications she takes, not on anticoagulation for a fib REVIEW OF SYSTEMS At the time of my exam: CONSTITUTIONAL: Denies fever or chills. CARDIOVASCULAR: Denies chest pain, shortness of breath, orthopnea, PND or palpitations. RESPIRATORY: Denies cough. GASTROINTESTINAL: Denies abdominal pain, diarrhea, constipation, nausea or vomiting. MUSCULOSKELETAL: Denies myalgias. NEUROLOGIC: Denies numbness, tingling, headacbe or weakness. ENDOCRINE: Denies fatigue, weight change, polydipsia or polyurina. GENITOURINARY: Denies burning, hematuria or urgency with micturation. HEMATOLOGIC: Denies history of anemia or bleeding. PHYSICAL EXAMINATION Blood pressure 105/56, heart rate 71, afebrile, maintaining oxygen saturations on room air CONSTITUTIONAL: No apparent distress. HEENT: Head is normocephalic. Pupils are equal, round. Sclerae anicteric. Mucous membranes of the mouth are moist. No JVD. No carotid bruit. CHEST EXAMINATION: Lungs are clear to auscultation. No chest wall tenderness is noted on palpation or with deep breathing. HEART EXAMINATION: Irregular rate and rhythm. S1, S2 heard. No murmurs, gallops or rub. ABDOMEN: Soft, nontender. Positive bowel sounds. EXTREMITIES: 2+ peripheral pulses, no lower extremity edema and no calf tenderness. NEUROLOGIC EXAMINATION: Patient is awake, alert and oriented x3. ASSESSMENT Paroxysmal atrial fibrillation, [id number] score 1 Altered mental status Tobacco use Fibromyalgia Asthma Marijuana use PLAN -Plan for EEG , neurology consulted -Obtain 2D echocardiogram -Obtain records from Dr. Roque office -Continue cardizem 60mg Q8hr -Continue cardiac telemetry -No need to start anticoagulation at this time due to [id number] score 1, will review records from patient's flavor maker -Further recommendations based on clinical course Nurse Practitioner note has been reviewed, I agree with a documented findings and plan of care. Patient was seen and examined. Past Medical History Past Medical History: Asthma, Fibromyalgia, GERD/Reflux, Myocardial Infarction ([place]), Osteoarthritis ([place]) Additional Past Medical History / Comment(s): LUPUS, HX OF DIVERTICULITIS, CONSTIPATION AND DIARRHEA. , RECEIVING ROOSTER COMB INJECTIONS IN KNEES, STATES ABNORMAL LIVER TESTS.chronic yeast infections Last Myocardial Infarction Date:: unknown History of Any Multi-Drug Resistant Organisms: None Reported Past Surgical History: Back Surgery, Cholecystectomy, Hysterectomy, Joint Replacement, Orthopedic Surgery, Tonsillectomy Additional Past Surgical History / Comment(s): RIGHT TOTAL HIP , LOWER BACK FUSION, CERVICAL SURGERY WITH HARDWARE, WIRED RIGHT SHOULDER, NERVE RIGHT ELBOW. Past Anesthesia/Blood Transfusion Reactions: Postoperative Nausea & Vomiting (PONV) Past Psychological History: No Psychological Hx Reported Smoking Status: Current every day smoker Past Alcohol Use History: None Reported, Rare Past Drug Use History: Marijuana - Past Family History Mother Family Medical History: Cancer (Breast) Additional Family Medical History / Comment(s): BREAST CANCER WITH METS. Father Family Medical History: Coronary Artery Disease (CAD) Additional Family Medical History / Comment(s): FATHER AT THE AGE OF 75YRS from broken heart. He has history of CVA. Daughter(s) Additional Family Medical History / Comment(s): Patient has 2 adult children with no major medical problems. Medications and Allergies Home Medications Medication Instructions Recorded Confirmed Type Albuterol Sulfate [Proair Hfa] 2 puff INHALATION RT-QID PRN 03/01/21 03/01/21 History Pantoprazole Sodium [Protonix] 40 mg PO DAILY 03/01/21 03/01/21 History traZODone HCL [Desyrel] 50 mg PO HS 03/01/21 03/01/21 History Allergies Allergy/AdvReac Type Severity Reaction Status Date / Time bee venom protein (honey bee) Allergy Severe Anaphylaxis Verified 03/01/21 07:55 adhesive tape AdvReac Unknown Tears skin Verified 03/01/21 07:55 latex AdvReac Itching, Verified 03/01/21 07:55 skin peels Tetracyclines AdvReac Rash/Hives Verified 03/01/21 07:55 Physical Exam Vitals: Vital Signs Temp Pulse Resp BP Pulse Ox 03/01/21 08:22 99.0 F 69 16 115/63 95 03/01/21 06:55 61 18 115/74 99 03/01/21 05:25 97.3 F L 116 H 16 133/75 89 L Intake and Output 02/28/21 03/01/21 03/01/21 22:59 06:59 14:59 Other: Weight 63.503 kg Results 03/01/21 05:47 03/01/21 05:47 Cardiac Enzymes 03/01/21 03/01/21 03/01/21 Range/Units 05:47 05:47 08:25 AST 55 H (14-36) U/L Troponin I <0.012 <0.012 (0.000-0.034) ng/mL Coagulation 03/01/21 Range/Units 05:47 PT 9.7 (9.0-12.0) sec APTT 21.9 L (22.0-30.0) sec CBC 03/01/21 Range/Units 05:47 WBC 13.2 H (3.8-10.6) k/uL RBC 4.74 (3.80-5.40) m/uL Hgb 14.7 (11.4-16.0) gm/dL Hct 44.7 (34.0-46.0) % Plt Count 281 (150-450) k/uL Comprehensive Metabolic Panel 03/01/21 Range/Units 05:47 Sodium 137 (137-145) mmol/L Potassium 4.1 (3.5-5.1) mmol/L Chloride 106 (98-107) mmol/L Carbon Dioxide 20 L (22-30) mmol/L BUN 15 (7-17) mg/dL Creatinine 0.77 (0.52-1.04) mg/dL Glucose 180 H (74-99) mg/dL Calcium 9.7 (8.4-10.2) mg/dL AST 55 H (14-36) U/L ALT 31 (4-34) U/L Alkaline Phosphatase 128 H (38-126) U/L Total Protein 7.5 (6.3-8.2) g/dL Albumin 4.2 (3.5-5.0) g/dL Current Medications Generic Name Dose Route Start Last Admin Trade Name Freq PRN Reason Stop Dose Admin Acetaminophen 650 mg 03/01/21 07:56 03/01/21 08:22 Acetaminophen Tab 325 Mg Tab PO 650 mg Q6HR PRN Administration Mild Pain or Fever > 100.5 Albuterol Sulfate 2.5 mg 03/01/21 07:59 Albuterol Nebulized 2.5 Mg/3 Ml INHALATION RT-QID PRN Shortness Of Breath Diltiazem HCl 60 mg 03/01/21 08:30 03/01/21 08:44 Diltiazem Oral 60 Mg Tab PO 60 mg Q8H BRITTANEY Administration Enoxaparin Sodium 60 mg 03/01/21 09:00 03/01/21 08:45 Enoxaparin 60 Mg/0.6 Ml Syringe SQ 60 mg Q12H BRITTANEY Administration Famotidine 20 mg 03/01/21 09:00 03/01/21 08:19 Famotidine 20 Mg Tab PO 20 mg BID BRITTANEY Administration Sodium Chloride 1,000 mls @ 75 mls/hr 03/01/21 08:00 03/01/21 08:19 Saline 0.9% IV 75 mls/hr .[id number] BRITTANEY Administration Melatonin 3 mg 03/01/21 09:10 Melatonin 3 Mg Tablet PO HS PRN Insomnia Naloxone HCl 0.2 mg 03/01/21 07:56 Naloxone 0.4 Mg/Ml 1 Ml Vial IV Q2M PRN Opioid Reversal Nicotine 1 patch 03/01/21 09:15 03/01/21 10:23 Nicotine 21mg/24hr Patch TRANSDERM Not Given DAILY BRITTANEY Nicotine Polacrilex 2 mg 03/01/21 09:10 Nicotine Gum (Polacrilex) 2 Mg Gum BUCCAL Q2HR PRN Nicotine Cravings Pantoprazole Sodium 40 mg 03/01/21 09:00 03/01/21 08:19 Pantoprazole 40 Mg Tablet PO 40 mg DAILY BRITTANEY Administration Trazodone HCl 50 mg 03/01/21 21:00 Trazodone Hcl 50 Mg Tab PO HS BRITTANEY Intake and Output 02/28/21 03/01/21 03/01/21 22:59 06:59 14:59 Other: Weight 63.503 kg 03/01/21 05:47 03/01/21 05:47
[2021-03-01] MEDS: LORazepam 0.5 MG TAB PO SCH (20:07)
[2021-03-01] MEDS ORDERED: traZODone HCL 50 MG TAB PO SCH (21:00)
[2021-03-01] MEDS: LACOSAMIDE 50 MG TABLET PO SCH (21:48)
--- NOTE | 2021-03-01 23:04 | P.CNNES ---
History of Present Illness Consult date: 03/01/21 Requesting physician: Rohan Caldwell Reason for Consult: altered mental status. Suspect seizure. History of Present Illness: Patient is a 61-year-old female came to the hospital by ambulance early this morning at 5:24 AM. EMS flow sheet not available in the chart. Patient's was present at the time of interview. Patient has been having stereotypical spells off and on for the last 1 year. The symptoms starts with getting funny metallic taste in her mouth, and she smells something metallic, then she starts getting nausea vomiting and headache. She often does not remember what happens afterwards. She gets confused postictally, and an example, she would ask where her 's parents are, although they are for a long time. The first time it happened, she was evaluated [facility] and underwent testing, and no diagnosis was made. These episodes can last for 30 seconds to a minute and sometimes may last up to an hour. She has been having these episodes about twice a month. She has not had a spell for the last 3 weeks. This morning her could not wake her up. He noticed that she was foaming from the mouth, her body was stiffened up, and making noises. He tried to open her jaw, but her jaw was clenched tightly. Patient bit inside of her upper lip, and also was soaking wet from sweating. Patient's vital signs on arrival blood pressure 133/75, pulse rate 116, t emperature 97.3. CT head is normal. Paranasal sinuses are normal. Chest x-ray revealed suspect underlying COPD. These patchy atelectasis versus developing infiltrate/pneumonia at the medial right base. EKG shows atrial fibrillation with rapid ventricular rate. Septal infarct, age undetermined. Patient's previous carotid Doppler from 08/15/2017 showed minimal grayscale atheromatous changes with no hemodynamically significant stenosis within either carotid artery system. Patient currently not taking any antiplatelet medication or anticoagulants prior to arrival. Blood tests shows WBC 13.2 hemoglobin 14.7, platelets are normal. PT/PTT normal, Chem-7 and Renal Panel Normal. AST Is Mildly Elevated 55, ALT 31. Troponin Negative, UA Shows Positive Nitrite, Large Amount of Leukocyte Es trace. Urine Drug Screen Positive for Benzos and Marijuana. [place] Virus PCR Negative. Patient was seen by cardiology for evaluation of paroxysmal atrial fibrillation, with [id number] score 1. 2-D echo was recommended. Patient started on Cardizem 60 mg every 8 hours and patient on telemetry. Machines Technician has suspected seizure disorder, therefore initiated an EEG and neurology consultation. Patient currently not on any anticoagulation or antiplatelet medication. Patient has smoked 1 pack per week for last 40 years, quit 5 years ago. She drinks alcohol very occasionally. She has medical marijuana card. Does not do any drugs. No history of concussions. Patient has seen by neurologist in the past, and had undergone testing for Lyme disease, heavy metals which according to patient and her report, all have been negative. Patient recently had undergone MRI of the brain, MRA of head. Patient follows up with Dr. Ramey, neurologist. Review of Systems Patient has history of chronic neck and back pain. She had history of back surgery in which she has a cage and fusion. Also had neck fusion. Patient also has hip and knee surgeries. Patient does have anxiety problems. Memory issues. Sometimes she gets nausea vomiting. No abdominal pain and diarrhea. Denies double vision, loss of vision. She has some hoarseness. No fever or chills. No shortness of breath, chest pain. All other review of systems reviewed and noncontributory. Past Medical History Past Medical History: Asthma, Fibromyalgia, GERD/Reflux, Myocardial Infarction (CA), Osteoarthritis (OA) Additional Past Medical History / Comment(s): LUPUS, HX OF DIVERTICULITIS, CONSTIPATION AND DIARRHEA. , RECEIVING ROOSTER COMB INJECTIONS IN KNEES, STATES ABNORMAL LIVER TESTS.chronic yeast infections Last Myocardial Infarction Date:: unknown History of Any Multi-Drug Resistant Organisms: None Reported Past Surgical History: Back Surgery, Cholecystectomy, Hysterectomy, Joint Replacement, Orthopedic Surgery, Tonsillectomy Additional Past Surgical History / Comment(s): RIGHT TOTAL HIP , LOWER BACK FUSION, CERVICAL SURGERY WITH HARDWARE, WIRED RIGHT SHOULDER, NERVE RIGHT ELBOW. Past Anesthesia/Blood Transfusion Reactions: Postoperative Nausea & Vomiting (PONV) Past Psychological History: No Psychological Hx Reported Smoking Status: Current every day smoker Past Alcohol Use History: None Reported, Rare Past Drug Use History: Marijuana - Past Family History Mother Family Medical History: Cancer (Breast) Additional Family Medical History / Comment(s): BREAST CANCER WITH METS. Father Family Medical History: Coronary Artery Disease (CAD) Additional Family Medical History / Comment(s): FATHER AT THE AGE OF 75YRS from broken heart. He has history of CVA. Daughter(s) Additional Family Medical History / Comment(s): Patient has 2 adult children with no major medical problems. Medications and Allergies Home Medications Medication Instructions Recorded Confirmed Type Albuterol Sulfate [Proair Hfa] 2 puff INHALATION RT-QID PRN 03/01/21 03/01/21 History Pantoprazole Sodium [Protonix] 40 mg PO DAILY 03/01/21 03/01/21 History traZODone HCL [Desyrel] 50 mg PO HS 03/01/21 03/01/21 History Allergies Allergy/AdvReac Type Severity Reaction Status Date / Time bee venom protein (honey bee) Allergy Severe Anaphylaxis Verified 03/01/21 07:55 adhesive tape AdvReac Unknown Tears skin Verified 03/01/21 07:55 latex AdvReac Itching, Verified 03/01/21 07:55 skin peels Tetracyclines AdvReac Rash/Hives Verified 03/01/21 07:55 Physical Examination - Vital Signs Vital Signs: Vital Signs Temp Pulse Resp BP Pulse Ox 03/01/21 14:44 98.0 F 03/01/21 12:03 99.4 F 71 16 105/56 95 03/01/21 08:22 99.0 F 69 16 115/63 95 03/01/21 06:55 61 18 115/74 99 03/01/21 05:25 97.3 F L 116 H 16 133/75 89 L Intake and Output 03/01/21 03/01/21 03/01/21 06:59 14:59 22:59 Other: Weight 63.503 kg Patient is a late middle aged female, in no acute distress. Patient is alert awake oriented to time place and person. Speech is mildly hoarse, and language functions are normal. No aphasia or dysarthria. Attention, concentration and fund of knowledge is adequate. Detailed cognitive function testing deferred. On cranial examination, pupils are round and reacting to light, visual mccracken are full on confrontation, extraocular muscles are intact with no nystagmus. Face is symmetric, tongue protrudes to the midline. Palatal elevation and sensation normal, hearing and shoulder shrug normal, facial sensation normal. Shoulder shrug normal. On muscle strength testing, there is no pronator drift and the strength is normal in arms and legs distally and proximally, except hip flexion, which is 4+ bilaterally from hip pain. Deep tendon reflexes are symmetric, 1-1+ all over and plantars downgoing bilaterally. Sensory to touch is equal with no neglect. Cerebellar function showed no ataxia for [id number] testing. No dysdiadochokinesia. Tone and bulk of muscles normal. Gait deferred. On general examination, there is no carotid bruit or murmur, S1-S2 audible. Abdomen is soft nontender. Chest is clear. Peripheral pulses are present. No edema. Results - Laboratory Findings CBC and BMP: 03/01/21 05:47 03/01/21 05:47 Abnormal Lab Findings: Abnormal Labs 03/01/21 03/01/21 03/01/21 05:47 05:47 05:47 WBC 13.2 H Neutrophils # 11.5 H APTT 21.9 L Carbon Dioxide Glucose AST Alkaline Phosphatase Urine Appearance Cloudy H Urine Protein Trace H Urine Nitrite Positive H Ur Leukocyte Esterase Large H Urine WBC 63 H Amorphous Sediment Rare H Urine Bacteria Rare H Urine Mucus Occasional H U Benzodiazepines Scrn Detected H U Marijuana (THC) Screen Detected H 03/01/21 05:47 WBC Neutrophils # APTT Carbon Dioxide 20 L Glucose 180 H AST 55 H Alkaline Phosphatase 128 H Urine Appearance Urine Protein Urine Nitrite Ur Leukocyte Esterase Urine WBC Amorphous Sediment Urine Bacteria Urine Mucus U Benzodiazepines Scrn U Marijuana (THC) Screen Assessment and Plan Assessment: * Probable generalized seizure, unclear etiology. Patient has been having rec urrent, stereotypical spells of sudden onset of metallic taste and metallic smell followed by nausea vomiting, headache and mental confusion, sometimes lasting for several minutes to half an hour. Symptoms are highly suggestive of temporal lobe seizures. * Atrial fibrillation * Tobacco use Plan: * Patient probably has developed seizure disorder. EEG was performed today, w hich was somewhat limited because of significant myogenic artifacts. We will empirically start Vimpat 50 mg twice a day. Possible side effects were discussed. After 1 week, I would recommend increasing Vimpat to 100 mg twice a day and maintain on this dose. * Patient also has atrial fibrillation. Would defer to cardiology regarding need for anticoagulation. In the meantime we will start aspirin 325 mg daily. * The seizure happened while patient was asleep. However she has been having some episodes in which she gets post ictal confusion. I would suggest patient no driving, unless cleared by her neurologist Dr. Ramey. Patient was also informed of [place] state law of no driving unless seizure free for 6 months, climbing ladders, operate dangerous machinery or unsupervised swimming. * We will perform 2-1/2 hours EEG to evaluate for epileptiform activity. This can be performed as an outpatient as well. * Recommended tobacco cessation. * Neurologically otherwise clear.
[2021-03-01 23:06] VITALS: RESP 18
[2021-03-02] MEDS: ENOXAPARIN 60 MG/0.6 ML SYRINGE SQ SCH (00:29)
[2021-03-02] MEDS: ASPIRIN 325 MG TAB PO SCH ×2 (00:29→10:04)
[2021-03-02] MEDS: SODIUM CHLORIDE 0.9% 1,000 ML IV SCH (07:04)
[2021-03-02] MEDS: DILTIAZEM ORAL 60 MG TAB PO SCH ×2 (07:05→10:04)
--- NOTE | 2021-03-02 07:52 | ECHOF ---
Referral Reason:LV function MEASUREMENTS -------- HEIGHT: 165.1 cm WEIGHT: 63.5 kg BP: 105/56 RVIDd: 3.0 cm (< 3.3) IVSd: 1.4 cm (0.6 - 1.1) LVIDd: 3.2 cm (3.9 - 5.3) LVPWd: 1.4 cm (0.6 - 1.1) IVSs: 1.6 cm LVIDs: 2.2 cm LVPWs: 1.8 cm LAESV Index (A-L): 23.22 ml/m Ao Diam: 3.1 cm (2.0 - 3.7) AV Cusp: 2.5 cm (1.5 - 2.6) MV EXCURSION: 13.874 mm (> 18.000) MV EF SLOPE: 51 mm/s (70 - 150) EPSS: 0.4 cm MV E Billy: 0.73 m/s MV DecT: 222 ms MV A Billy: 0.94 m/s MV E/A Ratio: 0.78 RAP: 5.00 mmHg RVSP: 22.44 mmHg FINDINGS -------- Sinus rhythm. This was a technically adequate study. The left ventricular size is normal. There is moderate concentric left ventricular hypertrophy. O verall left ventricular systolic function is normal with, an EF between 55 - 60 %. The diastolic fi lling pattern is normal for the age of the patient 9.58. The right ventricle is normal in size. Normal LA size by volume 22+/-6 ml/m2. The right atrial size is normal. Interatrial and interventricular septum intact. The aortic valve is trileaflet and appears structurally normal. Trace amount of aortic regurgitatio n. There is no evidence of aortic stenosis. There is trace mitral regurgitation. Mild tricuspid regurgitation present. There is no evidence of pulmonary hypertension. The right v entricular systolic pressure, as measured by Doppler, is 22.44mmHg. There is no pulmonic regurgitation present. The aortic root size is normal. IVC Not well visulized. There is no pericardial effusion. CONCLUSIONS -------- 1. The left ventricular size is normal. 2. There is moderate concentric left ventricular hypertrophy. 3. Overall left ventricular systolic function is normal with, an EF between 55 - 60 %. 4. The diastolic filling pattern is normal for the age of the patient 9.58 5. Trace amount of aortic regurgitation. 6. There is trace mitral regurgitation. 7. Mild tricuspid regurgitation present. STILE RIPSAW OPERATOR: Debra Sue RDCS
[2021-03-02 09:17] LABS: Basophils % (A) 0 %; Eosinophils # (A) 0.1 k/uL (0-0.7); Eosinophils % (A) 1 %; HCT 42.3 % (34.0-46.0); HGB 14.1 gm/dL (11.4-16.0); Lymphocytes # (A) 2.6 k/uL (1.0-4.8); Lymphocytes % (A) 30 %; MCH 30.7 pg (25.0-35.0); MCHC 33.4 g/dL (31.0-37.0); MCV 91.7 fL (80.0-100.0); Mean Platelet Volume 8.4; Monocytes # (A) 0.5 k/uL (0-1.0); Monocytes % (A) 6 %; Neutrophils # (A) 5.3 k/uL (1.3-7.7); Neutrophils % (A) 61 %; Platelet Count 297 k/uL (150-450); RBC 4.62 m/uL (3.80-5.40); RDW 12.7 % (11.5-15.5); WBC 8.7 k/uL (3.8-10.6)
[2021-03-02 09:47] LABS: ALT 31 U/L (4-34); AST 37 U/L (14-36); African American GFR (CKD) >90 (>60 ml/min/1.73 sqM); Albumin 3.8 g/dL (3.5-5.0); Alkaline Phosphatase 103 U/L (38-126); Anion Gap 9 mmol/L; Blood Urea Nitrogen 11 mg/dL (7-17); Calcium 9.6 mg/dL (8.4-10.2); Carbon Dioxide 22 mmol/L (22-30); Chloride 109 mmol/L (98-107); Glucose 127 mg/dL (74-99); Magnesium 1.9 mg/dL (1.6-2.3); Non-African American GFR(CKD) 86 (>60 ml/min/1.73 sqM); Potassium 3.5 mmol/L (3.5-5.1); Sodium 140 mmol/L (137-145); Total Bilirubin 0.6 mg/dL (0.2-1.3); Total Protein 6.9 g/dL (6.3-8.2)
--- NOTE | 2021-03-02 09:56 | P.DS ---
Providers Date of admission: 03/01/21 07:56 Expected date of discharge: 03/02/21 Attending physician: Jean Tillman MD Consults: 03/01/21 07:57 Consult Physician Routine Consulting Provider: Augustin Peña Consult Reason/Comments: altered mental status. Suspect seizure. Do you want consulting provider notified?: Yes 03/01/21 08:13 Consult Physician Routine Consulting Provider: Alex Yanez Consult Reason/Comments: newonset atrial fibrillation Do you want consulting provider notified?: Yes Primary care physician: Bel Jimenez Hospital Course: Discharge Diagnosis: Seizure-like activity Alteration in mental status, due to seizure activity and postictal period New-onset atrial fibrillation with RVR, converted to NSR Acute cystitis without hematuria Other chronic medical conditions include: CAD with previous MA, GERD, fibromyalgia, lupus, nicotine use, cannabis use, and chronic back pain status post previous spinal fusion. Hospital Course: Patient is a 61-year-old female with a past medical history of CAD with previous MA, GERD, fibromyalgia, lupus, nicotine use, cannabis use, and chronic back pain status post previous spinal fusion. Patient presented to the emergency department this morning with reports of altered mental status along with new onset witnessed seizure-like activity after being found by her in bed making grunting noises, foaming at the mouth, and with arms extended and stiff. In the emergency department, pt initially arrived alert and oriented but had episode in which she reported experiencing an abnormal taste and smell and was given ativan which seem to resolve complaint. EKG completed revealing A. fib RVR at 127 bpm. Chest x-ray reporting mild hyperinflation and interstitial prominence suspect underlying COPD. CT brain negative for acute intercranial process. Lab findings revealed mild leukocytosis with WBC count of 13.2 and slightly elevated AST of 55 and alkaline phosphatase of 128. Troponin negative at less than 0.012. Covid PCR negative. Urinalysis positive for nitrites, leukocytes and 63 WBCs. Urine drug screen positive for marijuana and benzodiazepines. Patient was admitted under our services with consultation to neurology and cardiology. Echocardiogram showing normal EF of 55-60% with no significant valvular abnormalities. 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 She was seen and evaluated by neurology and underwent an EEG which was reportedly limited secondary to significant myogenic artifact, neurologist diagnosing patient with a generalized seizure disorder of unclear etiology and started patient on Vimpat 50 mg twice daily clearing for discharge recommending patient follow up outpatient with neurologist in 1 week. Patient has had no further episodes of seizure-like activity and has remained in sinus rhythm since converting in the emergency department shortly after arrival. Patient is medically stable for discharge home. Patient has doctor's appointment with coat operator, Dr. Roque this afternoon and reports are already having a scheduled appointment with Dr. Early, neurologist next week. Patient educated on new medications Vimpat, Cardizem, and Keflex. She was instructed to keep all follow-up appointments. Patient also educated on [place] state law stating no driving until seizure free for 6 months. Physical exam: Vital signs reviewed and stable. General: Nontoxic, no distress and appears stated age. Derm: Skin warm and dry, normal coloration for ethnicity. Head: Atraumatic, normocephalic and symmetric. Eyes: EOMs intact, no lid lag, and anicteric sclera Mouth: no lip lesions, mucus membranes moist Cardiovascular: regular rate and rhythm with normal S1S2, no murmur, positive posterior tibial pulses bilaterally, and cap refill < 2 seconds. At time of assessment patient back in sinus rhythm. Lungs: Respirations even, regular, and unlabored on room air. Lungs CTA bilaterally, no rhonchi, no rales, no wheezing, and no accessory muscle usage. Abdominal: soft, nontender to palpation, no guarding, no appreciable organomegaly Ext: ROM intact. No gross muscle atrophy, no edema, no contractures. movement and sensation intact. Neuro: Speech clear, face symmetrical and CN II-XII grossly intact with no noted focal neuro deficits at time of assessment. Psych: Alert and oriented to person, place, time, and situation. Patient does continue to exhibit memory loss of previous events.. Appropriate and pleasant affect. A total of 45 minutes of time were spent preparing this complex discharge summary. Patient Condition at Discharge: Stable Plan - Discharge Summary Discharge Rx Participant: No New Discharge Prescriptions: New Diltiazem Oral [Cardizem*] 60 mg PO Q8H 30 Days #90 tab Cephalexin [Keflex] 500 mg PO Q8HR 3 Days #9 cap Lacosamide [Vimpat] 50 mg PO BID 30 Days #60 tablet Continue Albuterol Sulfate [Proair Hfa] 2 puff INHALATION RT-QID PRN PRN Reason: Shortness Of Breath traZODone HCL [Desyrel] 50 mg PO HS Pantoprazole Sodium [Protonix] 40 mg PO DAILY Discharge Medication List Albuterol Sulfate [Proair Hfa] 2 puff INHALATION RT-QID PRN 03/01/21 [History] Pantoprazole Sodium [Protonix] 40 mg PO DAILY 03/01/21 [History] traZODone HCL [Desyrel] 50 mg PO HS 03/01/21 [History] Cephalexin [Keflex] 500 mg PO Q8HR 3 Days #9 cap 03/02/21 [Rx] Diltiazem Oral [Cardizem*] 60 mg PO Q8H 30 Days #90 tab 03/02/21 [Rx] Lacosamide [Vimpat] 50 mg PO BID 30 Days #60 tablet 03/02/21 [Rx] Follow up Appointment(s)/Referral(s): [facility] [Provider Group] - 1 Week Billy Granado DO [REFERRING] - 1-2 days Patient Instructions/Handouts: A-fib (Atrial Fibrillation) (DC) Activity/Diet/Wound Care/Special Instructions: Patient informed of [place] state law stating no driving until seizure free for 6 months. Patient also instructed to avoid climbing ladders, operating dangerous or heavy machinery or unsupervised swimming until seizure free for 6 months It is important to follow-up with your coat operator, Dr. Roque and neurologist Dr. Early as instructed upon discharge. Please keep all follow-up appointments and take medications as directed.. Discharge Disposition: HOME SELF-CARE Plan of Treatment: 2.5 Hour EEG recommended. Can be done as outpatient.
[2021-03-02] MEDS: LORazepam 0.5 MG TAB PO SCH (10:04)
[2021-03-02] MEDS: NICOTINE 21MG/24HR PATCH TRANSDERM SCH (10:04)
[2021-03-02] MEDS: LACOSAMIDE 50 MG TABLET PO SCH (10:04)
[2021-03-02] MEDS: PANTOPRAZOLE 40 MG TABLET PO SCH (10:04)
[2021-03-02] MEDS: FAMOTIDINE 20 MG TAB PO SCH (10:04)
[2021-03-02 10:11] VITALS: BP 132/58; PULSE 63; TEMP 97.6
--- NOTE | 2021-03-02 11:36 | EEG ---
ELECTROENCEPHALOGRAM REPORT DATE OF SERVICE: 03/01/2021 PREAMBLE: This is a 61-year-old female with reported seizure activity. This study is performed to evaluate for any epileptiform activity. EEG FINDINGS: This is a 21-channel routine digital EEG recording with video, in a patient utilizing 10/20 international system with referential and bipolar montages. In the early part of recording, there was a lot of movement artifact seen intermittently in right or left hemispheric region. Significant myogenic activity was seen. During middle to later part of the study, patient was more calm and there was appearance of bilaterally symmetric, slightly disorganized mixed alpha and some low-voltage beta activity seen in bihemispheric region. Background seems to be minimally reactive to eye opening and closing. Different stages of sleep were not seen. Photic stimulation was not performed. No focal or generalized epileptiform activity was seen. IMPRESSION: This is probably a normal awake EEG. No focal, lateralized or epileptiform activity was seen. Presence of excessive low-voltage fast frequency beta is suggestive of medication effect. This study was slightly limited due to excessive myogenic activity. If your suspicion for seizures is high, consider prolonged, sleep-deprived EEG. MMODL / IJN: [id number] / SONJA
== END 2021-03-02 11:12 | disposition home or self-care (01) ==
LOC: EC 05:24 → 3SCARD 07:56 → 4SSUR 18:26 → 3SCARD 18:27
PROVIDERS: ADMIT Internal Medicine; ATTEND Internal Medicine
DX: R56.9 Unspecified convulsions (principal); N30.00 Acute cystitis without hematuria; R41.82 Altered mental status, unspecified; I48.0 Paroxysmal atrial fibrillation; R43.8 Other disturbances of smell and taste; I25.2 Old myocardial infarction; J45.909 Unspecified asthma, uncomplicated; M79.7 Fibromyalgia; K21.9 Gastro-esophageal reflux disease without esophagitis; M19.90 Unspecified osteoarthritis, unspecified site; K57.90 Diverticulosis of intestine, part unspecified, without perforation or abscess without bleeding; M32.9 Systemic lupus erythematosus, unspecified; G89.29 Other chronic pain; M54.9 Dorsalgia, unspecified; R74.01 Elevation of levels of liver transaminase levels; R41.3 Other amnesia; I25.10 Atherosclerotic heart disease of native coronary artery without angina pectoris; R11.2 Nausea with vomiting, unspecified; R51.9 Headache, unspecified; F41.9 Anxiety disorder, unspecified; F17.210 Nicotine dependence, cigarettes, uncomplicated; Z71.6 Tobacco abuse counseling; Z20.822 Contact with and (suspected) exposure to COVID-19; Z79.899 Other long term (current) drug therapy; Z88.1 Allergy status to other antibiotic agents; Z91.030 Bee allergy status; Z91.040 Latex allergy status; Z91.048 Other nonmedicinal substance allergy status; Z98.1 Arthrodesis status; Z90.49 Acquired absence of other specified parts of digestive tract; Z90.710 Acquired absence of both cervix and uterus; Z96.641 Presence of right artificial hip joint; Z80.3 Family history of malignant neoplasm of breast; Z82.49 Family history of ischemic heart disease and other diseases of the circulatory system; Z82.3 Family history of stroke
CPT/HCPCS: 96372 ×2; 96361; 96365; 96375; 99285; 36415; 95816; 93005; 93306; 80053 ×2; 83735; 84484; 85025 ×2; 85610; 85730; 81001; 80306; 87086; 87077; 87186; 83036; 87635; 71045; 70450; G0378 ×2; J2060; J0696; J1650 ×2

== ENCOUNTER 2022-06-21 09:22 | Emergency (ER) | payer OTHER ==
[2022-06-21 09:26] VITALS: TEMP 98.6
[2022-06-21 09:46] LABS: Basophils % (A) 0 %; Eosinophils # (A) 0.2 k/uL (0-0.7); Eosinophils % (A) 2 %; HCT 41.6 % (34.0-46.0); HGB 14.2 gm/dL (11.4-16.0); Lymphocytes # (A) 2.4 k/uL (1.0-4.8); Lymphocytes % (A) 24 %; MCH 31.2 pg (25.0-35.0); MCHC 34.1 g/dL (31.0-37.0); MCV 91.6 fL (80.0-100.0); Mean Platelet Volume 7.5; Monocytes # (A) 0.7 k/uL (0-1.0); Monocytes % (A) 6 %; Neutrophils # (A) 6.8 k/uL (1.3-7.7); Neutrophils % (A) 66 %; Platelet Count 273 k/uL (150-450); RBC 4.54 m/uL (3.80-5.40); RDW 12.5 % (11.5-15.5); WBC 10.4 k/uL (3.8-10.6)
[2022-06-21 09:57] LABS: ALT 21 U/L (4-34); AST 22 U/L (14-36); African American GFR (CKD) >90 (>60 ml/min/1.73 sqM); Albumin 4.1 g/dL (3.5-5.0); Alkaline Phosphatase 96 U/L (38-126); Anion Gap 9 mmol/L; Blood Urea Nitrogen 14 mg/dL (7-17); Calcium 9.2 mg/dL (8.4-10.2); Carbon Dioxide 22 mmol/L (22-30); Chloride 108 mmol/L (98-107); Glucose 114 mg/dL (74-99); INR 0.9 (<1.2); Magnesium 1.7 mg/dL (1.6-2.3); Non-African American GFR(CKD) 87 (>60 ml/min/1.73 sqM); Partial Thromboplastin Time 23.2 sec (22.0-30.0); Potassium 4.1 mmol/L (3.5-5.1); Prothrombin Time 9.8 sec (9.0-12.0); Sodium 139 mmol/L (137-145); Total Bilirubin 0.4 mg/dL (0.2-1.3); Total Protein 7.1 g/dL (6.3-8.2)
--- NOTE | 2022-06-21 10:07 | XR ---
EXAMINATION TYPE: XR chest 2V DATE OF EXAM: 06/21/2022 COMPARISON: 03/01/2021 HISTORY: Shortness of breath TECHNIQUE: Frontal and lateral views of the chest are obtained. FINDINGS: Scattered senescent parenchymal changes noted. Hyperinflation compatible with COPD. No evidence for infiltrate. No evidence for atelectasis. Heart size is stable. Mediastinal structures are stable and grossly unremarkable. No evidence for hilar prominence. Degenerative changes dorsal spine. IMPRESSION: 1. No evidence for acute pulmonary disease.
--- NOTE | 2022-06-21 10:29 | ED ---
General Adult HPI - General Source: patient Mode of arrival: ambulatory Limitations: no limitations <Tabitha Staley - Last Filed: 06/21/22 10:26> - General Source: RN notes reviewed, old records reviewed <Sissy Hicks - Last Filed: 06/21/22 13:56> - General Chief complaint: Chest Pain Stated complaint: chest pain, possible kidney infection Time Seen by Provider: 06/21/22 10:27 - History of Present Illness Initial comments: 62-year-old female presents to the emergency department with a chief complaint of right upper quadrant abdominal pain that radiates to the right flank x 3 days. She reports worse with movement. (Tabitha Staley) Patient is a 62-year-old female past medical history of asthma, fibromyalgia, GERD, heart disease, presenting to the emergency Department with complaints of 1-2 weeks of right-sided flank pain with radiation to the right upper quadrant. She states that pain intensified over the last 2 days. Currently the pain is a 9/10. She does endorse associated nausea. She states she's been seeing her PCP for what she thought was a UTI last week, she finished a course of Bactrim. She's been done for 1 week off the antibiotics. She was having some frequency and urgency. Her doctor told her to stop antibiotics last week as her urine was normal. He has had this history of kidney stones in the past. She's had history of cholecystectomy and hysterectomy, no other abdominal surgeries. She denies any fevers. She denies any chest pain or shortness of breath over the pain does sometimes take her breath away. She admits to normal bowel movements, no blood in her stool. Patient not take anything for pain prior to arrival. She has no further complaints. (Sissy Hicks) - Related Data Home Medications Medication Instructions Recorded Confirmed Pantoprazole Sodium [Protonix] 40 mg PO AC-BRKFST 03/01/21 06/21/22 Albuterol Nebulized [Ventolin 2.5 mg INHALATION RT-QID PRN 06/21/22 06/21/22 Nebulized] Albuterol Sulfate [Ventolin HFA] 2 puff INHALATION RT-Q6H PRN 06/21/22 06/21/22 Aspirin EC [Ecotrin Low Dose] 81 mg PO DAILY 06/21/22 06/21/22 Dicyclomine [Bentyl] 20 mg PO BID 06/21/22 06/21/22 EPINEPHrine (Auto Inject) [Epipen] 0.3 mg IM ONCE PRN 06/21/22 06/21/22 Estradiol Cream [Estrace Cream 1 gm VAGINAL MOWEFR 06/21/22 06/21/22 0.01%] Lacosamide [Vimpat] 100 mg PO BID 06/21/22 06/21/22 Midazolam [Nayzilam] 5 mg NASAL DIRECTED PRN 06/21/22 06/21/22 Mupirocin [Bactroban Nasal 1 applic TOPICAL BID PRN 06/21/22 06/21/22 Ointment 2% (with applicator)] Triamcinolone 0.5% Cream [Kenalog 1 applic TOPICAL BID PRN 06/21/22 06/21/22 0.5% Cream] Previous Rx's Medication Instructions Recorded Lacosamide [Vimpat] 50 mg PO BID 30 Days #60 tablet 03/02/21 HYDROcodone/APAP 5-325MG [[place] 1 tab PO Q6HR PRN 3 Days #12 tab 06/21/22 5-325] Allergies Allergy/AdvReac Type Severity Reaction Status Date / Time bee venom protein (honey bee) Allergy Severe Anaphylaxis Verified 06/21/22 12:44 adhesive tape AdvReac Unknown Tears skin Verified 06/21/22 12:44 latex AdvReac Itching, Verified 06/21/22 12:44 skin peels Tetracyclines AdvReac Rash/Hives Verified 06/21/22 12:44 Review of Systems ROS Other: All systems not noted in ROS Statement are negative. <Tabitha Staley - Last Filed: 06/21/22 10:26> ROS Other: All systems not noted in ROS Statement are negative. <Sissy Hicks - Last Filed: 06/21/22 13:56> ROS Statement: Those systems with pertinent positive or pertinent negative responses have been documented in the HPI. Past Medical History Past Medical History: Asthma, Fibromyalgia, GERD/Reflux, Myocardial Infarction (SD), Osteoarthritis (OA) Additional Past Medical History / Comment(s): LUPUS, HX OF DIVERTICULITIS, CONSTIPATION AND DIARRHEA. , RECEIVING ROOSTER COMB INJECTIONS IN KNEES, STATES ABNORMAL LIVER TESTS.chronic yeast infections Last Myocardial Infarction Date:: unknown History of Any Multi-Drug Resistant Organisms: None Reported Past Surgical History: Back Surgery, Cholecystectomy, Hysterectomy, Joint Replacement, Orthopedic Surgery, Tonsillectomy Additional Past Surgical History / Comment(s): RIGHT TOTAL HIP , LOWER BACK FUSION, CERVICAL SURGERY WITH HARDWARE, WIRED RIGHT SHOULDER, NERVE RIGHT ELBOW. Past Anesthesia/Blood Transfusion Reactions: Postoperative Nausea & Vomiting (PONV) Past Psychological History: No Psychological Hx Reported Smoking Status: Current every day smoker Past Alcohol Use History: None Reported, Rare Past Drug Use History: Marijuana - Past Family History Mother Family Medical History: Cancer (Breast) Additional Family Medical History / Comment(s): BREAST CANCER WITH METS. Father Family Medical History: Coronary Artery Disease (CAD) Additional Family Medical History / Comment(s): FATHER AT THE AGE OF 75YRS from broken heart. He has history of CVA. Daughter(s) Additional Family Medical History / Comment(s): Patient has 2 adult children with no major medical problems. <Tabitha Staley - Last Filed: 06/21/22 10:26> General Exam Limitations: no limitations <Tabitha Staley - Last Filed: 06/21/22 10:26> <Sissy Hicks - Last Filed: 06/21/22 13:56> - General Exam Comments Initial Comments: GENERAL: Patient is well-developed and well-nourished. Patient is nontoxic and is in mild distress secondary to pain. HEAD: Atraumatic, normocephalic. EYES: Pupils equal round and reactive to light, extraocular movements intact, sclera anicteric, conjunctiva are normal. Eyelids were unremarkable. ENT: Nares patent, oropharynx clear without exudates. Moist mucous membranes. NECK: Normal range of motion, supple without lymphadenopathy or JVD. LUNGS: Unlabored respirations. Breath sounds clear to auscultation bilaterally and equal. No wheezes rales or rhonchi. HEART: Regular rate and rhythm without murmurs, rubs or gallops. ABDOMEN: Tender to palpation of the right upper quadrant, right flank. Soft, normoactive bowel sounds. No guarding, no rebound. No masses appreciated. : Deferred MUSCULOSKELETAL: Normal extremities with adequate strength and normal range of motion, no pitting or edema. No clubbing or cyanosis. NEUROLOGICAL: Patient is alert and oriented x 3. Normal speech, normal gait. PSYCH: Normal mood, normal affect. SKIN: Warm, Dry, normal turgor, no rashes or lesions noted. (Sissy Hicks) Course Vital Signs 06/21/22 09:24 Temperature 98.6 F Pulse Rate 84 Respiratory 24 Rate Blood Pressure 119/83 O2 Sat by Pulse 97 Oximetry EKG Findings - EKG Comments: EKG Findings:: Ventricular rate 83, MD interval 162, QT 356. Sinus rhythm, no acute abnormality seen. <Sissy Hicks - Last Filed: 06/21/22 13:56> Medical Decision Making - Lab Data Result diagrams: 06/21/22 09:37 06/21/22 09:37 <Tabitha Staley - Last Filed: 06/21/22 10:26> - Lab Data Result diagrams: 06/21/22 09:37 06/21/22 09:37 <FabiolaLeelaSissy L - Last Filed: 06/21/22 13:56> - Medical Decision Making Patient is a 62-year-old female here with right upper quadrant, right flank pain over the past 1-2 weeks, intensified over the last 2 days. Finished a course of Bactrim last week. Laboratory studies are unremarkable, troponin is negative, urine shows no evidence of infection. Including a chest x-ray, right upper quadrant ultrasound and CT the abdomen and pelvis showing no acute abnormalities. Patient was given pain control, she's been resting comfortably. Discussed these findings with her. She states she continues to have pain however I'm not finding etiology of her pain. She does have a phone call with her GI doctor today. I recommended telling the GI doctor about her symptoms, possibly recommended endoscope. She is agreeable with this. She is stable for discharge home. Return parameters discussed. Case discussed with Dr. Felix. Was pt. sent in by a medical professional or institution (, PA, PASSENGER BRAKEMAN, urgent care, hospital, or senior care...) When possible be specific @ -[No] Did you speak to anyone other than the patient for history (EMS, parent, family, police, friend...)? What history was obtained from this source @ -[No] Did you review nursing and triage notes (agree or disagree)? Why? @ -[I reviewed and agree with nursing and triage notes] Were old charts reviewed (outside hosp., previous admission, EMS record, old EKG, old radiological studies, urgent care reports/EKG's, senior care records)? Report findings @ -[No old charts were reviewed] Differential Diagnosis (chest pain, altered mental status, abdominal pain women, abdominal pain men, vaginal bleeding, weakness, fever, dyspnea, syncope, headache, dizziness, GI bleed, back pain, seizure, CVA, palpatations, mental health)? @ -[Differential Abdominal Pain Women: Appendicitis, Cholecystitis, diverticulosis, ischemic bowel, pancreatitis, hepatitis, UTI, gastroenteritis, AAA, incarcerated hernia, bowel obstruction, constipation, inflammatory bowel, hepatitis, peptic ulcer disease, splenic infarction, perforated viscus, vulvitis, ovarian torsion, PID, kidney stone, placenta abruption, this is not meant to be an all-inclusive list] EKG interpreted by me (3pts min.). @ -[As above] X-rays interpreted by me (1pt min.). @ -[chest x-ray showing no acute abnormality] CT interpreted by me (1pt min.). @ -[None done] U/S interpreted by me (1pt. min.). @ -[None done] What testing was considered but not performed or refused? (CT, X-rays, U/S, labs)? Why? @ -[None] What meds were considered but not given or refused? Why? @ -[None] Did you discuss the management of the patient with other professionals (professionals i.e. , PA, PASSENGER BRAKEMAN, lab, RT, psych nurse, hospital social worker, media analyst, teacher, vice squad police officer, case reviewer)? Give summary @ -[Dr. Felix] Was smoking cessation discussed for >3mins.? @ -[No] Was critical care preformed (if so, how long)? @ -[No] Were there social determinants of health that impacted care today? How? (Homelessness, low income, unemployed, alcoholism, drug addiction, transportation, low edu. Level, literacy, decrease access to med. care, retirement, rehab)? @ -[No] Was there de-escalation of care discussed even if they declined (Discuss DNR or withdrawal of care, Hospice)? DNR status @ -[No] What co-morbidities impacted this encounter? (DM, HTN, Smoking, COPD, CAD, Cancer, CVA, ARF, Chemo, Hep., AIDS, mental health diagnosis, sleep apnea, morbid obesity)? @ -[None] Was patient admitted / discharged? Hospital course, mention meds given and route, prescriptions, significant lab abnormalities, going to OR and other pertinent info. @ -[DC] Undiagnosed new problem with uncertain prognosis? @ -[No] Drug Therapy requiring intensive monitoring for toxicity (Heparin, Nitro, Insulin, Cardizem)? @ -[No] Were any procedures done? @ -[No] Side effects of treatment? @ -[No] Exacerbation, Progression, or Severe Exacerbation? @ -[No] Poses a threat to life or bodily function? How? (Chest pain, USA, SD, pneumonia, PE, COPD, DKA, ARF, appy, cholecystitis, CVA, Diverticulitis, Homicidal, Suicidal, threat to staff... and all critical care pts) @ -[No] (Sissy Hicks) - Lab Data Lab Results 06/21/22 06/21/22 06/21/22 Range/Units 09:37 09:37 09:37 WBC 10.4 (3.8-10.6) k/uL RBC 4.54 (3.80-5.40) m/uL Hgb 14.2 (11.4-16.0) gm/dL Hct 41.6 (34.0-46.0) % MCV 91.6 (80.0-100.0) fL MCH 31.2 (25.0-35.0) pg MCHC 34.1 (31.0-37.0) g/dL RDW 12.5 (11.5-15.5) % Plt Count 273 (150-450) k/uL MPV 7.5 Neutrophils % 66 % Lymphocytes % 24 % Monocytes % 6 % Eosinophils % 2 % Basophils % 0 % Neutrophils # 6.8 (1.3-7.7) k/uL Lymphocytes # 2.4 (1.0-4.8) k/uL Monocytes # 0.7 (0-1.0) k/uL Eosinophils # 0.2 (0-0.7) k/uL Basophils # 0.0 (0-0.2) k/uL PT 9.8 (9.0-12.0) sec INR 0.9 (<1.2) APTT 23.2 (22.0-30.0) sec Sodium 139 (137-145) mmol/L Potassium 4.1 (3.5-5.1) mmol/L Chloride 108 H (98-107) mmol/L Carbon Dioxide 22 (22-30) mmol/L Anion Gap 9 mmol/L BUN 14 (7-17) mg/dL Creatinine 0.74 (0.52-1.04) mg/dL Est GFR (CKD-EPI)AfAm >90 (>60 ml/min/1.73 sqM) Est GFR (CKD-EPI)NonAf 87 (>60 ml/min/1.73 sqM) Glucose 114 H (74-99) mg/dL Calcium 9.2 (8.4-10.2) mg/dL Magnesium 1.7 (1.6-2.3) mg/dL Total Bilirubin 0.4 (0.2-1.3) mg/dL AST 22 (14-36) U/L ALT 21 (4-34) U/L Alkaline Phosphatase 96 (38-126) U/L Troponin I (0.000-0.034) ng/mL Total Protein 7.1 (6.3-8.2) g/dL Albumin 4.1 (3.5-5.0) g/dL Urine Color Urine Appearance (Clear) Urine pH (5.0-8.0) Ur Specific [place] (1.001-1.035) Urine Protein (Negative) Urine Glucose (UA) (Negative) Urine Ketones (Negative) Urine Blood (Negative) Urine Nitrite (Negative) Urine Bilirubin (Negative) Urine Urobilinogen (<2.0) mg/dL Ur Leukocyte Esterase (Negative) 06/21/22 06/21/22 Range/Units 09:37 13:05 WBC (3.8-10.6) k/uL RBC (3.80-5.40) m/uL Hgb (11.4-16.0) gm/dL Hct (34.0-46.0) % MCV (80.0-100.0) fL MCH (25.0-35.0) pg MCHC (31.0-37.0) g/dL RDW (11.5-15.5) % Plt Count (150-450) k/uL MPV Neutrophils % % Lymphocytes % % Monocytes % % Eosinophils % % Basophils % % Neutrophils # (1.3-7.7) k/uL Lymphocytes # (1.0-4.8) k/uL Monocytes # (0-1.0) k/uL Eosinophils # (0-0.7) k/uL Basophils # (0-0.2) k/uL PT (9.0-12.0) sec INR (<1.2) APTT (22.0-30.0) sec Sodium (137-145) mmol/L Potassium (3.5-5.1) mmol/L Chloride (98-107) mmol/L Carbon Dioxide (22-30) mmol/L Anion Gap mmol/L BUN (7-17) mg/dL Creatinine (0.52-1.04) mg/dL Est GFR (CKD-EPI)AfAm (>60 ml/min/1.73 sqM) Est GFR (CKD-EPI)NonAf (>60 ml/min/1.73 sqM) Glucose (74-99) mg/dL Calcium (8.4-10.2) mg/dL Magnesium (1.6-2.3) mg/dL Total Bilirubin (0.2-1.3) mg/dL AST (14-36) U/L ALT (4-34) U/L Alkaline Phosphatase (38-126) U/L Troponin I <0.012 (0.000-0.034) ng/mL Total Protein (6.3-8.2) g/dL Albumin (3.5-5.0) g/dL Urine Color Yellow Urine Appearance Clear (Clear) Urine pH 6.5 (5.0-8.0) Ur Specific [place] 1.024 (1.001-1.035) Urine Protein Negative (Negative) Urine Glucose (UA) Negative (Negative) Urine Ketones Negative (Negative) Urine Blood Negative (Negative) Urine Nitrite Negative (Negative) Urine Bilirubin Negative (Negative) Urine Urobilinogen <2.0 (<2.0) mg/dL Ur Leukocyte Esterase Negative (Negative) Disposition <Tabitha Staley - Last Filed: 06/21/22 10:26> Is patient prescribed a controlled substance at d/c from ED?: Yes When asked, does pt state using other controlled substances?: No If prescribed controlled substance>3 days was MAPS reviewed?: Prescribed <3 Days If opioid is for acute pain is fill amount 7 days or less?: Yes If Rx opioid, was Start Talking consent form obtained?: Yes Time of Disposition: 13:55 <Sissy Hicks - Last Filed: 06/21/22 13:56> Clinical Impression: RUQ abdominal pain Disposition: HOME SELF-CARE Condition: Stable Instructions (If sedation given, give patient instructions): Abdominal Pain (ED) Additional Instructions: Please return to the Emergency Department if symptoms worsen or any other concerns. Please follow-up with your GI doctor as discussed. Prescriptions: HYDROcodone/APAP 5-325MG [[place] 5-325] 1 tab PO Q6HR PRN 3 Days #12 tab PRN Reason: Pain Referrals: Bel Jimenez MD [Primary Care Provider] - 1-2 days
[2022-06-21] MEDS ORDERED: MORPHINE SULFATE 4 MG/ML SYRINGE IVP STA (11:05)
[2022-06-21] MEDS ORDERED: KETOROLAC 15 MG/ML 1 ML VIAL IVP STA (11:05)
[2022-06-21] MEDS ORDERED: ONDANSETRON 4 MG/2 ML VIAL IVP STA (11:05)
[2022-06-21] MEDS ORDERED: SODIUM CHLORIDE 0.9% 1,000 ML IV STA (11:06)
--- NOTE | 2022-06-21 11:47 | US ---
EXAMINATION TYPE: US gallbladder DATE OF EXAM: 06/21/2022 COMPARISON: Correlation MRI 08/08/2012 CLINICAL HISTORY: 62-year-old female RUQ pain. TECHNIQUE: Multiple sonographic images of the right upper quadrant are obtained. FINDINGS: EXAM MEASUREMENTS: Liver Length: 11.9 cm Gallbladder: Surgically absent CBD: 0.31 cm Right Kidney: 9.9 x 4.2 x 4.7 cm MAINTENANCE ANALYST NOTES:Exam limited by overlying bowel gas and patient's extreme pain causing inability to be completely immobile Pancreas: Tail obscured by overlying bowel gas Liver: Increased attenuation with heterogeneous echogenic mass inferior right liver lobe 1.7 x 1.6 x 2.2cm. This correlates well to the patient's 3.6 cm benign hemangioma seen on the 08/08/2012 MRI. No other focal lesion seen. Gallbladder: Surgically absent Evidence for sonographic Zamora's sign: Drill Punch Operator notes: Pt is in extreme pain throughout entire upper abdomen. CBD: wnl Right Kidney: wnl IMPRESSION: 1. Exam limitations due to patient's pain and bowel gas. 2. Status post cholecystectomy. No biliary ductal dilatation. 3. Inferior right liver lobe mass measuring 2.2 cm corresponds to a benign hemangioma seen back on patient's 2012 MRI. 4. The psychiatric aide reports that the patient was in extreme pain along the upper abdomen throughout scan.
--- NOTE | 2022-06-21 12:10 | CT ---
EXAMINATION TYPE: CT abdomen pelvis wo con DATE OF EXAM: 06/21/2022 COMPARISON: None HISTORY: Right sided flank pain CT DLP: 595.1 mGycm Examination of the solid and hollow viscera is limited given the lack of contrast. FINDINGS: LUNG BASES: No evidence for nodule. No evidence for infiltrate. LIVER/GB: The gallbladder surgically absent. No space-occupying hepatic lesion. PANCREAS: No pancreatic mass identified. No inflammatory process seen. SPLEEN: No evidence for splenomegaly. No intrasplenic lesions seen. ADRENALS: Right adrenal nodule measures 1.9 cm. Nodular thickening left adrenal gland could reflect a denoma or hyperplasia. No evidence for thickening. KIDNEYS: No evidence for renal mass. No nephrolithiasis. No hydronephrosis. BOWEL: Appendix has a normal appearance. No evidence of bowel obstruction. No inflammatory process. Lymph nodes: No evidence for adenopathy greater than 1 cm. Abdominal aorta: Atheromatous changes seen. No evidence for aneurysm. Genital organs: No significant abnormality. Other: Right hip prosthesis. Postoperative changes dorsally. IMPRESSION: 1. No acute intra-abdominal process.
[2022-06-21] MEDS ORDERED: HYDROmorphone 0.5 MG/0.5 ML SYRINGE IVP STA (12:28)
[2022-06-21 13:19] LABS: Appearance,Urine Clear (Clear); Bilirubin,Urine Negative (Negative); Blood,Urine Negative (Negative); Color,Urine Yellow; Glucose,Urine (UA) Negative (Negative); Ketones,Urine Negative (Negative); Leukocyte Esterase,Urine Negative (Negative); Nitrite,Urine Negative (Negative); PH, Urine 6.5 (5.0-8.0); Protein,Urine Negative (Negative); Specific Gravity,Urine 1.024 (1.001-1.035); Urobilinogen,Urine <2.0 mg/dL (<2.0)
[2022-06-21] MEDS ORDERED: HYDROcodone/APAP 5-325MG 1 EACH TAB PO STA (14:40)
[2022-06-21 14:55] VITALS: BP 127/67; PULSE 51; RESP 18
== END 2022-06-21 14:59 | disposition home or self-care (01) ==
LOC: EC 09:22
DX: R10.11 Right upper quadrant pain (principal); J45.909 Unspecified asthma, uncomplicated; K21.9 Gastro-esophageal reflux disease without esophagitis; M19.90 Unspecified osteoarthritis, unspecified site; I21.9 Acute myocardial infarction, unspecified; F12.90 Cannabis use, unspecified, uncomplicated; F17.200 Nicotine dependence, unspecified, uncomplicated; Z79.899 Other long term (current) drug therapy; Z91.030 Bee allergy status; Z91.048 Other nonmedicinal substance allergy status; Z91.040 Latex allergy status; Z88.8 Allergy status to other drugs, medicaments and biological substances
CPT/HCPCS: 36415; 93005; 80053; 83735; 84484; 85025; 85610; 85730; 81003; 71046; 76705; 74176; 99285; 96374; 96375 ×3; 96361 ×3; J2270; J2405; J1885; J1170

== ENCOUNTER 2023-03-07 02:22 | Emergency (ER) | payer OTHER ==
[2023-03-07 02:50] VITALS: RESP 18
[2023-03-07] MEDS ORDERED: HYDROmorphone 0.5 MG/0.5 ML SYRINGE IVP STA (03:18)
[2023-03-07] MEDS ORDERED: ONDANSETRON 4 MG/2 ML VIAL IVP STA (03:18)
[2023-03-07] MEDS ORDERED: SODIUM CHLORIDE 0.9% 1,000 ML IV STA (03:18)
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
[2023-03-07 03:56] LABS: ALT 26 U/L (4-34); AST 26 U/L (14-36); African American GFR (CKD) >90 (>60 ml/min/1.73 sqM); Albumin 4.1 g/dL (3.5-5.0); Alkaline Phosphatase 139 U/L (38-126); Anion Gap 10 mmol/L; Blood Urea Nitrogen 13 mg/dL (7-17); Calcium 9.8 mg/dL (8.4-10.2); Carbon Dioxide 21 mmol/L (22-30); Chloride 104 mmol/L (98-107); Glucose 110 mg/dL (74-99); Lipase 126 U/L (23-300); Non-African American GFR(CKD) 80 (>60 ml/min/1.73 sqM); Potassium 4.2 mmol/L (3.5-5.1); Sodium 135 mmol/L (137-145); Total Bilirubin 0.6 mg/dL (0.2-1.3); Total Protein 7.5 g/dL (6.3-8.2)
[2023-03-07 04:06] LABS: Basophils # (A) 0.1 k/uL (0-0.2); Basophils % (A) 0 %; Eosinophils # (A) 0.3 k/uL (0-0.7); Eosinophils % (A) 2 %; HCT 42.4 % (34.0-46.0); HGB 14.4 gm/dL (11.4-16.0); Lymphocytes # (A) 3.1 k/uL (1.0-4.8); Lymphocytes % (A) 20 %; MCH 31.4 pg (25.0-35.0); MCHC 33.9 g/dL (31.0-37.0); MCV 92.6 fL (80.0-100.0); Mean Platelet Volume 7.8; Monocytes # (A) 1.1 k/uL (0-1.0); Monocytes % (A) 7 %; Neutrophils # (A) 10.4 k/uL (1.3-7.7); Neutrophils % (A) 69 %; Platelet Count 291 k/uL (150-450); RBC 4.58 m/uL (3.80-5.40); RDW 12.3 % (11.5-15.5); WBC 15.1 k/uL (3.8-10.6)
[2023-03-07 05:11] LABS: Appearance,Urine Clear (Clear); Bilirubin,Urine Negative (Negative); Blood,Urine Negative (Negative); Color,Urine Light Yellow; Glucose,Urine (UA) Negative (Negative); Ketones,Urine Negative (Negative); Leukocyte Esterase,Urine Negative (Negative); Nitrite,Urine Negative (Negative); Protein,Urine Negative (Negative); Urobilinogen,Urine <2.0 mg/dL (<2.0)
--- NOTE | 2023-03-07 07:05 | CT ---
EXAMINATION TYPE: CT abdomen pelvis w con CT DLP: 792 mGycm, Automated exposure control for dose reduction was used. DATE OF EXAM: 03/07/2023 4:19 AM COMPARISON: CT abdomen pelvis most recent from 06/21/2022 CLINICAL INDICATION:Female, 63 years old with history of abdominal pain; TECHNIQUE: Axial CT of the abdomen and pelvis. Sagittal and coronal reformats were created on a [employer] workstation. Contrast used: mL of , (none if empty) Oral contrast used: (none if empty) FINDINGS: LOWER CHEST: Unremarkable ABDOMEN LIVER: Unremarkable GALLBLADDER AND BILE DUCTS: The gallbladder surgically absent. PANCREAS: Unremarkable. SPLEEN: Unremarkable. ADRENAL GLANDS: Indeterminate right adrenal 2.2 cm nodule. KIDNEYS AND URETERS: Streak artifact limits evaluation the distal ureters. No evidence of hydronephro sis bilaterally. No renal calculi bilaterally. No evidence of hydronephrosis or renal calculus. The u reters are unremarkable. PELVIS BLADDER: Urinary bladder is grossly unremarkable given limitations with streak artifact. REPRODUCTIVE: Unremarkable. ABDOMEN & PELVIS STOMACH AND BOWEL: No evidence of bowel obstruction. The appendix is visualized and normal. Large sto ol burden throughout the cecum and ascending colon. PERITONEUM/RETROPERITONEUM: No evidence of pneumoperitoneum or free fluid. VASCULATURE: Mild atherosclerotic calcifications are present throughout the abdominal aorta and its b ranches. No evidence of aortic aneurysm. MUSCULOSKELETAL: No acute osseous abnormalities, right hip arthroplasty changes limits evaluation of the distal ureter calcific bodies which are poorly located present. Multilevel degeneration changes t hroughout the spine. Fixation changes at L4-L5. LYMPH NODES: No gross evidence for lymphadenopathy. SOFT TISSUE/ABDOMINAL WALL: Fat-containing umbilical hernia. IMPRESSION: 1. Limited evaluation of the distal ureters however there is no evidence for obstructive uropathy. T he appendix is visualized and normal. No definitive evidence for acute abdominal process. 2. Urinary bladder is unremarkable. 3. Indeterminate right adrenal nodule which can be further clarified with MRI or CT adrenal mass pro tocol. 4. There is large amount of stool within the cecum and ascending colon.
[2023-03-07] MEDS ORDERED: MAGNESIUM CITRATE 296 ML BOTTLE PO ONE (07:35)
[2023-03-07 08:27] VITALS: BP 107/61; PULSE 58; TEMP 98
== END 2023-03-07 08:19 | disposition home or self-care (01) ==
LOC: EC 02:22
DX: K59.00 Constipation, unspecified (principal); J45.909 Unspecified asthma, uncomplicated; K21.9 Gastro-esophageal reflux disease without esophagitis; I25.2 Old myocardial infarction; F17.200 Nicotine dependence, unspecified, uncomplicated; F12.90 Cannabis use, unspecified, uncomplicated; Z79.82 Long term (current) use of aspirin; Z79.899 Other long term (current) drug therapy; Z91.030 Bee allergy status; Z91.040 Latex allergy status; Z88.6 Allergy status to analgesic agent; Z90.49 Acquired absence of other specified parts of digestive tract
CPT/HCPCS: 36415; 80053; 83605; 83690; 85025; 81003; 74177; 99285; 96374; 96375; 96361 ×3; J2405; J1170; Q9967